=== PATIENT | male | born 1995 | race Caucasian/White ===

== ENCOUNTER 2020-09-14 06:28 | Outpatient (REF) | payer OTHER, SELFPAY ==
--- NOTE | 2020-09-14 06:51 | ECG_ITS ---
Test Reason : TACHYCARDIA Blood Pressure : / mmHG Vent. Rate : 082 BPM Atrial Rate : 082 BPM P-R Int : 152 ms QRS Dur : 088 ms QT Int : 374 ms P-R-T Axes : 065 052 030 degrees QTc Int : 436 ms Normal sinus rhythm with sinus arrhythmia Normal ECG No previous ECGs available Referred By: Derik Blanchard Electronically Signed By:JODY KWON MD
[2020-09-14 07:11] LABS: MANUAL DIFF FLAG NO
[2020-09-14 07:16] LABS: Basophils Percent Auto 0.3 % (0-2); Eosinophils Absolute Auto 0.5 X10*3/uL (0.0-0.4); Eosinophils Percent Auto 4.6 % (0-4); Hematocrit 44.2 % (42-52); Hemoglobin 15.1 g/dl (14.0-18.0); Imm Gran Abs Auto 0.05 X10*3/uL (0.00-0.03); Imm Gran Pct Auto 0.4 % (0.0-0.4); Lymphocytes Absolute Auto 3.4 X10*3/uL (1.2-4.9); Lymphocytes Percent Auto 29.9 % (20-40); Mean Corpuscular HGB Conc 34.2 g/dl (31.0-36.0); Mean Corpuscular Hemoglobin 28.6 pg (27.0-33.0); Mean Corpuscular Volume 83.7 fL (80-98); Mean Platelet Volume 8.4 fL (9.4-12.4); Monocytes Absolute Auto 0.9 X10*3/uL (0.1-1.2); Monocytes Percent Auto 7.9 % (2-11); Neutrophils Absolute Auto 6.5 X10*3/uL (2.0-8.3); Neutrophils Percent Auto 56.9 % (45-73); Platelet Count 388 X10*3/uL (160-400); Red Blood Count 5.28 X10*6/uL (4.60-5.80); Red Cell Distribution Width 11.7 % (11.0-16.0); White Blood Count 11.4 X10*3/uL (4.8-10.8)
[2020-09-14 07:30] LABS: Glucose Urine UA NEG (NEG); Leukocyte Esterase Urine NEG (NEG); Nitrite Urine NEG (NEG); PH 5.5 (5.0-8.0); Specific Gravity - Urine <= 1.005 (1.005-1.025); Urine Blood NEG (NEG); Urine Ketones NEG (NEG); Urine Protein NEG (NEG-TRACE)
[2020-09-14 07:35] LABS: Appearance Urine CLEAR; Color Urine YELLOW
[2020-09-14 07:40] LABS: Alanine Aminotransferase 16 U/L (0-40); Albumin Level 4.6 g/dL (3.5-5.0); Alkaline Phosphatase 104 U/L (39-117); Anion Gap 15 (12-20); Aspartate Amino Transferase 17 U/L (5-37); Bilirubin Total 0.4 mg/dL (0.0-1.0); Blood Urea Nitrogen 13 mg/dL (9-16); Calcium 9.8 mg/dL (8.4-10.2); Carbon Dioxide 25 mmol/L (22-29); Chloride 103 mmol/L (96-108); Cholesterol 203 mg/dL; Estimated Glomerular Filt Rate > 60; Glucose Fasting 99 mg/dL (60-99); HDL Cholesterol 42 mg/dL; LDL Cholesterol Calculated 107 mg/dl; Sodium 138 mmol/L (135-145); Total Protein 7.9 g/dL (6.5-8.0); Triglycerides 270 mg/dL
[2020-09-14 08:02] LABS: TSH reflex Free T4 1.96 uIU/mL (0.32-4.0)
[2020-09-14 08:27] LABS: Hepatitis B Surface Antigen Negative (Negative); ~HepC Num1 4.79 S/CO (0.00-0.79); ~Hepatitis C Antibody Reactive (Nonreactive)
[2020-09-14 09:07] LABS: HBS Num1 128.31 mIU/mL (0-7.99); HBc Num1 0.05 S/CO (0.00-0.79); HIV AB/AG Nonreactive (Nonreactive); HIV Num 1 0.09 S/CO (0.00-0.99); Hepatitis B Core Antibody Nonreactive (Nonreactive); ~Hepatitis B Surface Antibody REACTIVE (Nonreactive)
[2020-09-14 09:10] LABS: CT PCR NOT DETECTED (Not Detect.); NG PCR NOT DETECTED (Not Detect.)
[2020-09-15 08:41] LABS: Syphilis Screen Nonreactive (Nonreactive)
[2020-09-20 20:46] LABS: HSV 1 IgM IFA Negative (Negative); HSV 2 IgM IFA Negative (Negative)
== END 2020-09-14 06:29 | disposition home or self-care (01) ==
LOC: HO.LAB 06:28
PROVIDERS: PCP Internal Medicine; Visit Provider Internal Medicine
DX: R00.0 Tachycardia, unspecified (principal); R03.0 Elevated blood-pressure reading, without diagnosis of hypertension; Z20.2 Contact with and (suspected) exposure to infections with a predominantly sexual mode of transmission
CPT/HCPCS: 80053; 80061; 81003; 84443; 85025; 86695; 86696; 86704; 86706; 86780; 86803; 87340; 87389; 87491; 87591; 93005

== ENCOUNTER → 2021-07-21 08:14 | Outpatient (BNVA) | payer OTHER, SELFPAY | PROVIDERS: PCP Internal Medicine; Visit Provider Urology ==

== ENCOUNTER 2021-12-07 15:53 | Emergency (ER) | payer OTHER, SELFPAY ==
--- NOTE | ~2021-12-07 | XR_ITS ---
EXAMINATION: XR SHOULDER, RIGHT CLINICAL INFORMATION: Shoulder pain COMPARISON: None TECHNIQUE: Four views of the right shoulder. FINDINGS: The bones and soft tissues are normal. Some bone islands are present in the humeral head. No fracture. Glenohumeral and acromioclavicular alignment is anatomic with normal joint space. No abnormal soft tissue calcifications. XR/XR shoulder RT min 2V IMPRESSION: Normal right shoulder.
[2021-12-07 16:27] VITALS: BP 124/87; PULSE 95; RESP 18; TEMP 36.4; O2SAT 97; BMI 28.8
--- NOTE | 2021-12-07 20:35 | ED.EXTPRO ---
HPI - Extremity Problem General Chief complaint: Extremity Injury, Upper Stated complaint: dislocated right shoulder? Time Seen by Provider: 12/07/21 16:18 Source: patient Mode of arrival: ambulatory Limitations: no limitations History of Present Illness HPI Narrative: Patient was doing dips on the countertop today since then been having pain in the right shoulder especially when lifting his hand. No deformity Related Data Home Medications Medication Instructions Recorded Confirmed dextroamphetamine-amphetamine ER 1 cap PO QAM 07/12/21 07/12/21 20 mg 24hr capsule,extend release (Adderall XR) Previous Rx's Medication Instructions Recorded famotidine 20 mg tablet 20 mg PO BEDTIME PRN heartburn 30 07/12/21 days #30 tabs tadalafil 5 mg tablet 5 mg PO DAILY sexual activity 90 07/21/21 days #90 tabs nirmatrelvir 300 mg (150 mg x See Rx Instructions PO .COMPLEX 10/19/21 2)-ritonavir 100 mg tablet (EUA) #30 tabs (Paxlovid) Allergies Allergy/AdvReac Type Severity Reaction Status Date / Time amoxicillin Allergy Unknown unknown Verified 07/21/21 08:16 Review of Systems Review of Systems: Yes all other systems are reviewed and are negative PMFSH Past Medical History Medical History Attention deficit hyperactivity disorder (ADHD) Elevated blood pressure reading Erectile dysfunction GERD (gastroesophageal reflux disease) Overweight (BMI 25.0-29.9) Tachycardia Surgical History No significant past surgical history Family History Family History Father Hypertension Other Family history non-contributory Mental health problem Substance abuse Social History Social History Housing: Apartment Alcohol intake: former Patient Tobacco Use Status: Never used Tobacco Second Hand Smoke Exposure: No Substance Use Type: Marijuana Advance Directives: No Advance Directives Information Provided: No service: No Current occupational status: employed Physical Exam Vital Signs: Vital Signs: Last Vital Signs Temp 97.6 F 12/07/21 16:27 Pulse 95 12/07/21 16:27 Resp 18 12/07/21 16:27 BP 124/87 12/07/21 16:27 Pulse Ox 97 12/07/21 16:27 O2 Del Method 12/07/21 16:27 BMI result Body Mass Index 28.8 Const: General: comfortable and no acute distress Extrem: Shoulder/upper arm images: 1. Diffuse tenderness no deformity noticed neurovascular intact increased pain on external rotation and abduction above 90 degrees no motor weakness MDM - Extremity (Nontraumatic) MDM Narrative Medical decision making narrative: X-ray negative for dislocation clinically patient had rotator cuff tendinitis advise patient to follow with PCP Discharge Plan Discharge Clinical Impression: Tendinitis of right rotator cuff Patient Disposition: Home, Self-Care Instructions: Rotator Cuff Tendinitis (ED) Additional Instructions: Ibuprofen for pain Rest your right shoulder Follow with PCP if any concerns Prescriptions: No Action Paxlovid (EUA) 150 mg x 2- 100 mg tablet See Rx Instructions PO .COMPLEX Qty: 30 0RF Rx Instructions: take TWO 150 mg tablets of nirmatrelvir with ONE 100 mg tablet of ritonavir twice daily for 5 days PO dextroamphetamine-amphetamine [Adderall XR] 20 mg capsule,extended release 24hr 1 cap PO QAM Label Comments: [facility] famotidine 20 mg tablet 20 mg PO BEDTIME PRN (Reason: heartburn) 30 Days Qty: 30 3RF tadalafil 5 mg tablet 5 mg PO DAILY 90 Days Qty: 90 3RF Rx Instructions: administer approximately 30min before sexual activity; do not use more than 1 dose per 24hrs Interventions: ED Discharge Assessment Last Done: 12/07/21 21:10 Discharge Date/Time: 12/07/21 21:13
== END 2021-12-07 21:13 | disposition home or self-care (01) ==
PROVIDERS: Emergency Provider Internal Medicine; PCP Internal Medicine
DX: M75.101 Unspecified rotator cuff tear or rupture of right shoulder, not specified as traumatic (principal); Z79.899 Other long term (current) drug therapy
CPT/HCPCS: 73030; 99282; 99283

== ENCOUNTER → 2022-07-20 15:00 | Outpatient (BNVA) | payer OTHER, SELFPAY | PROVIDERS: PCP Internal Medicine; Visit Provider Urology | DX: Z13.89 Encounter for screening for other disorder (principal) ==

== ENCOUNTER 2022-12-16 07:59 | Outpatient (REF) | payer OTHER, SELFPAY ==
[2022-12-16 08:30] LABS: MANUAL DIFF FLAG NO
[2022-12-16 08:52] LABS: Basophils Percent Auto 0.4 % (0-2); Eosinophils Absolute Auto 0.3 X10*3/uL (0.0-0.4); Eosinophils Percent Auto 3.5 % (0-4); Hematocrit 43.1 % (42.0-52.0); Hemoglobin 14.8 g/dl (14.0-18.0); Imm Gran Abs Auto 0.03 X10*3/uL (0.00-0.03); Imm Gran Pct Auto 0.3 % (0.0-0.4); Lymphocytes Absolute Auto 3.2 X10*3/uL (1.2-4.9); Lymphocytes Percent Auto 34.1 % (20-40); Mean Corpuscular HGB Conc 34.3 g/dl (31.0-36.0); Mean Corpuscular Hemoglobin 28.4 pg (27.0-33.0); Mean Corpuscular Volume 82.7 fL (80.0-98.0); Mean Platelet Volume 8.3 fL (9.4-12.4); Monocytes Absolute Auto 0.8 X10*3/uL (0.1-1.2); Monocytes Percent Auto 8.9 % (2-11); Neutrophils Absolute Auto 4.9 x10*3/uL (2.0-8.3); Neutrophils Percent Auto 52.8 % (45-73); Platelet Count 344 X10*3/uL (160-400); Red Blood Count 5.21 X10*6/uL (4.60-5.80); White Blood Count 9.3 X10*3/uL (4.8-10.8)
[2022-12-16 09:24] LABS: Alanine Aminotransferase 34 U/L (0-40); Albumin Level 4.1 g/dL (3.5-5.0); Alkaline Phosphatase 88 U/L (39-117); Anion Gap 13 (12-20); Aspartate Amino Transferase 29 U/L (5-37); Bilirubin Total 0.3 mg/dL (0.0-1.0); Blood Urea Nitrogen 11 mg/dL (9-16); Calcium 9.8 mg/dL (8.4-10.2); Carbon Dioxide 24 mmol/L (22-29); Chloride 106 mmol/L (96-108); Cholesterol 194 mg/dL; Estimated Glomerular Filt Rate > 60; Glucose Fasting 97 mg/dL (60-99); HDL Cholesterol 37 mg/dL; LDL Cholesterol Calculated 129 mg/dl; Potassium 4.1 mmol/L (3.3-5.1); Sodium 139 mmol/L (135-145); Total Protein 7.5 g/dL (6.5-8.0); Triglycerides 143 mg/dL
[2022-12-16 09:39] LABS: TSH reflex Free T4 3.04 uIU/mL (0.32-4.0); Vitamin D 25-OH Total 19.1 ng/mL (>30)
[2022-12-16 10:36] LABS: Appearance Urine Clear; Color Urine Yellow; Glucose Urine UA Negative (Negative); Leukocyte Esterase Urine Negative (Negative); Nitrite Urine Negative (Negative); Specific Gravity - Urine <= 1.005 (1.005-1.025); Urine Blood Negative (Negative); Urine Ketones Negative (Negative); Urine Protein Negative (Neg-Trace)
[2022-12-21 12:24] LABS: Testosterone, Free 63.1 pg/mL (35.0-155.0); Testosterone, Total 265 ng/dL (250-1100)
== END 2022-12-16 08:00 | disposition home or self-care (01) ==
LOC: HO.LAB 07:59
PROVIDERS: PCP Internal Medicine; Visit Provider Internal Medicine
DX: Z00.00 Encounter for general adult medical examination without abnormal findings (principal); E55.9 Vitamin D deficiency, unspecified; N52.9 Male erectile dysfunction, unspecified; R79.89 Other specified abnormal findings of blood chemistry; E66.9 Obesity, unspecified
CPT/HCPCS: 36415; 80053; 80061; 81003; 82306; 84402; 84403; 84443; 85025

== ENCOUNTER 2022-12-18 14:51 | Outpatient (AMB) | payer OTHER, SELFPAY ==
[2022-12-18 15:08] VITALS: BP 128/80; PULSE 114; O2SAT 96; BMI 32.0
--- NOTE | 2022-12-18 15:08 | MHC.PC.OV ---
Vital Signs 12/18/22 15:08 Height 5 ft 8 in Weight 210 lb 6 oz BMI 32.0 BP 128/80 Blood Pressure Location Lt brachial Position Sitting Pulse 114 H Pulse Source Pulse Oximeter Pulse Oximetry (%) 96 Oxygen Delivery Method Room Air Intake Visit Reasons: 6 month Integration Aide Required: No Accompanied by: Self / Same As Patient Allergies amoxicillin Allergy (Unknown, Verified 12/18/22 15:44) unknown Medication List - Last Reconciled 12/18/22 by Derik Blanchard MD dextroamphetamine-amphetamine 20 mg ER (Adderall XR) 1 cap PO QAM famotidine 20 mg PO BEDTIME PRN 30 days tadalafil 5 mg PO DAILY 90 days Tobacco use date assessed: 12/18/22 Dental Screening Dental Screen Date: 12/18/22 Did you have a dental visit in the last 12 months?: Yes Did you have a dental problem in the last 6 months where you did not have access to dental care?: No Was dental information given to patient?: Patient has dentist HPI 6 month HPI Details Patient comes in today for his follow up visit States that he has been experiencing some recurrent joint pains lately, including over his hands/fingers, right hip, right knee and at times over his ankles Has had some scaling and itchy lesion at his hairline along the right temporal area lately and he is now concerned that he may have psoriatic arthritis Has never been diagnosed with psoriasis in the past but states that his mother has lupus (and diverticulitis) States that he has also been experiencing persistent fatigue for a while now and that is why he called to have lab order for his testosterone level included in his labs recently He denies any headaches or dizziness Denies any chest pains, no increased SOB although he sometimes feel like he cannot get a full breath in - notes that he would sometimes feel like he is getting ready to black out when he is engaged in intense work outs Has tried using some rescue inhaler recently and found that it helps somewhat No nausea/vomiting, no abdominal pain No change in bowel habits noted Had his follow up labs done a couple of days ago - to discuss his results [facility] Medical History (Updated 02/10/23 @ 23:17 by Derik Blanchard MD) Vitamin D deficiency Mixed hyperlipidemia Obesity (BMI 30-39.9) Anxiety GERD (gastroesophageal reflux disease) Overweight (BMI 25.0-29.9) Erectile dysfunction Attention deficit hyperactivity disorder (ADHD) Tachycardia Elevated blood pressure reading Surgical History No significant past surgical history Family History Father Hypertension Other Family history non-contributory Mental health problem Substance abuse Social History Housing: Apartment Alcohol intake: former Patient Tobacco Use Status: Never used Tobacco e-Cigarette/Vaping Use: Never Used Second Hand Smoke Exposure: No Substance Use Type: Marijuana service: No Current occupational status: employed Cognitive needs: No Hearing needs: No Vision needs: No Questionnaire PHQ-9 Over the last 2 weeks, how often have you been bothered by any of the following problems? 1. Little interest or pleasure in doing things: several days 2. Feeling down, depressed, or hopeless: several days 3. Trouble falling or staying asleep, or sleeping too much: not at all 4. Feeling tired or having little energy: nearly every day 5. Poor appetite or overeating: more than half the days 6. Feeling bad about yourself - or that you are a failure or have let yourself or your family down: several days 7. Trouble concentrating on things, such as reading the newspaper or watching television: several days 8. Moving or speaking so slowly that other people could have noticed. Or the opposite - being so fidgety or restless that you have been moving around a lot more than usual: not at all 9. Thoughts that you would be better off or of hurting yourself in some way: not at all Total score: 9 Depression Screening Interpretation: Positive Depression Screening Follow-up: Existing condition, In treatment (on Rx for ADHD/anxiety) and Follow-up Visit Requested [id number] - PHQ-9 Billing: Yes Source: Developed by Drs. Sigifredo Escobar, Lena Fung, Drew Owens and colleagues, with an educational clover from [employer]. Thrive Questionnaire Date Thrive assessed: 12/18/22 I am a: Patient What is your living situation today?: I have a steady place to live Within the past 12 months, did the food you bought not last and you didn't have the money to get more?: Never true Within the past 12 months, did you worry whether your food would run out before you got money to buy more?: Never true Do you have trouble paying for medicines?: No Do you have trouble getting transportation to medical appointments?: No Do you have trouble paying your heating and electricity bill?: No Do you have trouble taking care of your child, family member or friend?: No Do you have trouble with day-to-day activities such as bathing, preparing meals, shopping, managing finances, etc.?: No Are you currently unemployed and looking for a job?: No Are you interested in more education?: No Please select the resources that you would like help with: None Currently or been in a relationship where the following occur: no concerns reported AUDIT C Alcohol Use Questionnaire (AUDIT-C) 1. How often do you have a drink containing alcohol?: Never 3. How often do you have six or more drinks on one occasion?: Never Total Score: 0 Score Reviewed/Action Taken: Yes SKY-7 AMB Questionnaire SKY-7 Date SKY - 7 assessed: 12/18/22 Feeling nervous, anxious, or on edge: 0 = Not at all Not being able to stop or control worryin = Not at all Worrying too much about different things: 0 = Not at all Trouble relaxin = Not at all Being so restless that it is hard to sit still: 0 = Not at all Becoming easily annoyed or irritable: 0 = Not at all Feeling afraid as if something awful might happen: 0 = Not at all Total SKY-7 score (0-4 normal; 5-9 mild; 10-14 moderate; 15-21 severe): 0 Source: Developed by Drs. Sigifredo Escobar, Lena Fung, Drew Owens and colleagues, with an educational clover from [employer]. Review of Systems Const Reports fatigue, Denies fever(s) and Denies headache(s) ENT Denies dysphagia, Denies dizziness, Denies otalgia, Denies headache(s), Denies neck pain, Denies odynophagia and Denies sore throat Card Denies chest pain, Denies rapid heart rate, Denies irregular heart rhythm, Denies palpitations and Reports dyspnea on exertion (mild, at times recently) Resp Denies cough, Reports dyspnea on exertion (mild, at times recently) and Denies wheezing GI Denies abdominal pain, Denies constipation, Denies dysphagia, Denies heartburn, Denies diarrhea, Denies nausea, Denies odynophagia and Denies vomiting Denies difficulty urinating, Denies dysuria and Denies urinary frequency Musc Denies back pain, Reports arthralgias (involving multiple joints lately - see HPI) and Denies neck pain Skin/Breast Reports rash (over the right temporal area - see HPI) Neuro Denies dizziness and Denies headache(s) Endo Reports fatigue and Denies palpitations Aller/Immun Denies wheezing Physical exam (Primary Care) Vital Signs: Last Vital Signs Pulse 114 H 12/18/22 15:08 BP 128/80 12/18/22 15:08 Pulse Ox 96 12/18/22 15:08 Oxygen Delivery Method Room Air 12/18/22 15:08 BMI result Body Mass Index 32.0 Tobacco/Smoking Status: Tobacco use Status Tobacco use date assessed 12/18/22 12/18/22 15:17 Patient Tobacco Use Status Never used Tobacco 12/18/22 15:17 e-Cigarette/Vaping Use Never Used 12/18/22 15:17 PHQ-9: PHQ-9 Score PHQ-9: Total score 9 12/18/22 15:48 Depression Screening Interpretation: Positive Depression Screening Follow-up: Existing condition, In treatment (on Rx for ADHD/anxiety) and Follow-up Visit Requested Thrive Assessment: Date of Thrive Assessment Date Thrive assessed 12/18/22 12/18/22 15:17 Currently or been in a relationship where the following occur: no concerns reported Const General: no acute distress and alert HENMT Ears: TM's normal bilaterally and EAC's normal Throat: Yes posterior oropharynx normal and Yes tonsils normal (no TP congestion) Neck Neck: Yes no lymphadenopathy and Yes supple Thyroid: Thyroid normal Resp Auscultation: clear to auscultation bilaterally, no rales and no wheezes Cardio Rate: regular rate Rhythm: regular rhythm Heart sounds: no murmurs GI Palpation (GI): Soft to palpation and nontender Auscultation: normal bowel sounds Back/Spine/Pelvis Thoracic/Lumbar Spine: thoracic and lumbar spine normal to inspection Skin Other: (+) small patch of scaling rash over the right temporal area at the hairline Extrem General: Yes no clubbing, cyanosis or edema Results Reviewed Results Reviewed: Laboratory Tests 12/16/22 12/16/22 12/16/22 08:29 08:29 09:37 WBC 9.3 Hgb 14.8 Hct 43.1 Plt Count 344 Sodium 139 Potassium 4.1 Creatinine 0.88 Estimated GFR > 60 Fasting Glucose 97 AST 29 ALT 34 Triglycerides 143 Cholesterol 194 LDL Cholesterol, Calc 129 HDL Cholesterol 37 25-OH Vitamin D Total 19.1 TSH 3.04 Ur Specific Temple <= 1.005 Urine Protein Negative Urine Glucose (UA) Negative Urine Blood Negative Assessment and Plan Assessment & Plan (1) Mixed hyperlipidemia: Code(s): E78.2 - Mixed hyperlipidemia Plan: Results of his labs done a couple of days ago reviewed and discussed with patient - his serum triglycerides have improved significantly from previous although his LDL cholesterol has increased from before Reinforced low cholesterol diet Will recheck his labs and fasting lipids in 6 months for follow up (2) Attention deficit hyperactivity disorder (ADHD): Code(s): F90.9 - Attention-deficit hyperactivity disorder, unspecified type Qualifiers: Attention deficit-hyperactivity disorder type: combined inattentive-hyperactive Qualified Code(s): F90.2 - Attention-deficit hyperactivity disorder, combined type Plan: Continue Adderall XR 20 mg QD Follow up with psychiatry at [facility] as scheduled (3) Exertional dyspnea: Code(s): R06.09 - Other forms of dyspnea Plan: Will send patient for chest x-rays BARB for further evaluation Advised that he can continue on Albuterol inhaler PRN for now Will also send him for PFTs for further evaluation of his recent recurrent HERR (4) Arthralgia: Code(s): M25.50 - Pain in unspecified joint Qualifiers: Joint pain location: unspecified Qualified Code(s): M25.50 - Pain in unspecified joint Plan: Will send patient for some labs BARB for further work ups of his recent arthralgias If his arthralgia work ups are positive, will consider referring him to rheumatology for further evaluation and management (5) GERD (gastroesophageal reflux disease): Code(s): K21.9 - Gastro-esophageal reflux disease without esophagitis Qualifiers: Esophagitis presence: without esophagitis Qualified Code(s): K21.9 - Gastro-esophageal reflux disease without esophagitis Plan: Reinforced dietary restrictions Continue Famotidine 20 mg Q HS PRN (6) Vitamin D deficiency: Code(s): E55.9 - Vitamin D deficiency, unspecified Plan: He is advised that his vitamin-D level is low on his recent labs - will start him on vitamin D3 2000 units QD (7) Erectile dysfunction: Code(s): N52.9 - Male erectile dysfunction, unspecified Qualifiers: Erectile dysfunction type: unspecified Qualified Code(s): N52.9 - Male erectile dysfunction, unspecified Plan: Continue Tadalafil 5 mg QD PRN (8) Anxiety: Code(s): F41.9 - Anxiety disorder, unspecified Plan: Patient is still going to counseling and have advised him to bring this to his counselor's/therapist's attention as well Have recommended that he can try some Rx like Sertraline or Citalopram but he would like to hold off on this for now Patient is advised that he can call for prescription at any time if he decides that he wants to try taking some medications to help with his anxiety (9) Obesity (BMI 30-39.9): Code(s): E66.9 - Obesity, unspecified Plan: Reinforced diet/exercise as tolerated/ lose weight Plan Follow up in 3 months Orders: Orders Erythrocyte Sedimentation Rate 12/18/22 M79.7 - Fibromyalgia, M25.50 - Pain in unspecified joint C Reactive Protein 12/18/22 M25.50 - Pain in unspecified joint JADEN Reflex Titer and Pattern 12/18/22 M25.50 - Pain in unspecified joint Rheumatoid Factor 12/18/22 M25.50 - Pain in unspecified joint PFT pulmonary function test 12/18/22 R06.09 - Other forms of dyspnea XR chest 2V 12/18/22 R06.09 - Other forms of dyspnea Medications: New cholecalciferol (vitamin D3) 50 mcg PO DAILY 90 caps 3RF 90 days E55.9 - Vitamin D deficiency, unspecified Coding Level of Care Code Est Pt Level 4 (55171) Diagnoses Mixed hyperlipidemia E78.2 Attention deficit hyperactivity disorder (ADHD), combined type F90.2 Attention deficit-hyperactivity disorder type: combined inattentive-hyperactive Exertional dyspnea R06.09 Arthralgia, unspecified joint M25.50 Joint pain location: unspecified Gastroesophageal reflux disease without esophagitis K21.9 Esophagitis presence: without esophagitis Vitamin D deficiency E55.9 Erectile dysfunction, unspecified erectile dysfunction type N52.9 Erectile dysfunction type: unspecified Anxiety F41.9 Obesity (BMI 30-39.9) E66.9
== END 2022-12-18 16:18 | disposition home or self-care (01) ==
PROVIDERS: PCP Internal Medicine; Visit Provider Internal Medicine
DX: E78.2 Mixed hyperlipidemia (principal); R06.09 Other forms of dyspnea; K21.9 Gastro-esophageal reflux disease without esophagitis; E55.9 Vitamin D deficiency, unspecified
CPT/HCPCS: 99214

== ENCOUNTER 2023-01-04 08:21 | Outpatient (REF) | payer OTHER, SELFPAY ==
--- NOTE | ~2023-01-04 | XR_ITS ---
EXAMINATION: XR CHEST CLINICAL INFORMATION: Reason for Exam R06.09 - Other forms of dyspnea COMPARISON: None TECHNIQUE: 2 views of the chest FINDINGS: Lines and tubes: None. A 1.2 cm nodular opacity overlying the right lung apex which potentially reflect a pulmonary nodule versus overlapping osseous structures. No pleural effusion. No pneumothorax. Normal cardiomediastinal silhouette. XR/XR chest 2V IMPRESSION: 1. A 1.2 cm nodular opacity overlying the right lung apex which potentially reflect a pulmonary nodule versus overlapping osseous structures. Recommend further characterization with CT chest. The report will be called to the ordering clinician by a [facility] Physician Organic Chemist.
--- NOTE | 2023-01-04 09:16 | PFT_ITS ---
Forced vital capacity is 104%, FEV1 102%, FEV1 over FVC ratio of 80. FEF 25-75 93% and MVV 69%. Post bronchodilator therapy, there is no significant change. Total lung capacity 91%. Residual volume is 41%. ERV, 63%. Diffusion capacity 112. CONCLUSION: Normal pulmonary function test except for slight decrease in MVV and marked decrease in residual volume. I think this abnormality is nonspecific and probably related to poor effort. MD TIN Yousif/MODL / [id number]
[2023-01-04 10:47] LABS: C Reactive Protein 0.24 mg/dL (< or = 0.50)
[2023-01-04 10:48] LABS: Rheumatoid Factor < 13.0 IU/mL (<15.0)
[2023-01-04 10:49] LABS: Erythrocyte Sedimentation Rate 9 MM/HR (0-15)
[2023-01-09 16:05] LABS: Anti Nuclear Antibody Screen NEGATIVE (NEGATIVE)
== END 2023-01-04 08:22 | disposition home or self-care (01) ==
LOC: HO.RESP 08:21
PROVIDERS: PCP Internal Medicine; Visit Provider Internal Medicine
DX: R06.09 Other forms of dyspnea (principal); M25.50 Pain in unspecified joint; M79.7 Fibromyalgia
CPT/HCPCS: 36415; 71046; 85652; 86038; 86140; 86431; 94010; 94727; 94729

== ENCOUNTER → 2023-01-04 09:16 | Outpatient (BNV) | payer OTHER, SELFPAY | PROVIDERS: PCP Internal Medicine; Visit Provider Internal Medicine | DX: R06.09 Other forms of dyspnea (principal) | CPT/HCPCS: 94060; 94727; 94729 ==

== ENCOUNTER 2023-03-12 16:00 | Outpatient (REF) | payer OTHER, SELFPAY ==
--- NOTE | ~2023-03-12 | CT_ITS ---
EXAMINATION: CT CHEST WITHOUT CONTRAST CLINICAL INFORMATION: Solitary pulmonary nodule COMPARISON: Chest radiograph from 09/05/2019 TECHNIQUE: Multidetector volumetric CT imaging of the chest was done. Axial MIP volume rendering provided. Sagittal and coronal reformatted images were obtained. This CT examination was performed using dose optimization techniques as appropriate, variously including the following: *Automated exposure control *Adjustment of mA and/or kV according to patient size (this includes techniques or standardized protocols for targeted exams where dose is matched to indication/reason for exam; i.e. extremities or head) *Use of iterative reconstruction technique DLP: 290 mGy-cm FINDINGS: CHIEF ACCOUNTANT: Unremarkable LUNGS: The lungs are clear with no evidence of inflammation or nodules. MEDIASTINUM: The gland is normal. There is no mediastinal or hilar lymphadenopathy seen. Thoracic aorta is normal. There is no pericardial effusion. CORONARY ARTERY CALCIFICATION: None visualized on this study. PLEURA: There is no pleural effusion. No pleural mass or thickening. AXILLA: No lymphadenopathy. UPPER ABDOMEN: Unremarkable. OSSEOUS STRUCTURES: Unremarkable. CT/CT chest wo IV con IMPRESSION: Unremarkable examination. Fleischner guidelines were followed.
== END 2023-03-12 16:01 | disposition home or self-care (01) ==
LOC: HO.CT 16:00
PROVIDERS: PCP Internal Medicine; Visit Provider Internal Medicine
DX: R91.1 Solitary pulmonary nodule (principal)
CPT/HCPCS: 71250

== ENCOUNTER 2023-07-16 17:04 | Outpatient (AMB) | payer OTHER, SELFPAY ==
[2023-07-16 17:07] VITALS: BP 132/94; PULSE 106; O2SAT 98; BMI 31.5
--- NOTE | 2023-07-16 17:07 | A.OFFPC_ITS ---
Vital Signs 07/16/23 17:07 Height 5 ft 8 in Weight 207 lb 4 oz BMI 31.5 BP 132/94 H Blood Pressure Location Lt brachial Position Sitting Pulse 106 H Pulse Source Pulse Oximeter Pulse Oximetry (%) 98 Oxygen Delivery Method Room Air Intake Visit Reasons: GERD, recurrent cough, palpitations Parts Runner Required: No Accompanied by: Self / Same As Patient Allergies amoxicillin Allergy (Unknown, Verified 07/16/23 17:29) unknown Medication List - Last Reconciled 07/16/23 by Derik Blanchard MD cholecalciferol (vitamin D3) 50 mcg PO DAILY 90 days dextroamphetamine-amphetamine 20 mg ER (Adderall XR) 1 cap PO QAM famotidine 20 mg PO BEDTIME PRN 30 days tadalafil 5 mg PO DAILY 90 days Tobacco use date assessed: 07/16/23 HPI GERD, recurrent cough, palpitations HPI Details Patient comes in today for his follow up visit States that he continues to experience recurrent sensation/bouts of rapid heartbeats/tachycardia, which seems to be easily triggered with activity or exertion Patient is aware that his anxiety is also likely contributing to his symptoms and has noticed that his baseline resting heart rate is already often high and is usually over 100 beats per minute He is currently following up with his psychiatrist regularly for his anxiety and ADHD issues He is scheduled to see cardiology tomorrow for further evaluation his symptoms He denies any headaches or dizziness Denies any chest pains; states that he feels short of breath at times when his heart rate is very high but this only occurs occasionally No nausea/vomiting, no abdominal pain No change in bowel habits noted [facility] Medical History Vitamin D deficiency Mixed hyperlipidemia Obesity (BMI 30-39.9) Anxiety GERD (gastroesophageal reflux disease) Overweight (BMI 25.0-29.9) Erectile dysfunction Attention deficit hyperactivity disorder (ADHD) Tachycardia Elevated blood pressure reading Surgical History No significant past surgical history Family History Father Hypertension Other Family history non-contributory Mental health problem Substance abuse Social History Housing: Apartment Alcohol intake: former Patient Tobacco Use Status: Never used Tobacco e-Cigarette/Vaping Use: Never Used Second Hand Smoke Exposure: No Substance Use Type: Marijuana service: No Current occupational status: employed Cognitive needs: No Hearing needs: No Vision needs: No Questionnaire PHQ-9 Over the last 2 weeks, how often have you been bothered by any of the following problems? 1. Little interest or pleasure in doing things: more than half the days 2. Feeling down, depressed, or hopeless: several days 3. Trouble falling or staying asleep, or sleeping too much: nearly every day 4. Feeling tired or having little energy: nearly every day 5. Poor appetite or overeating: more than half the days 6. Feeling bad about yourself - or that you are a failure or have let yourself or your family down: not at all 7. Trouble concentrating on things, such as reading the newspaper or watching television: several days 8. Moving or speaking so slowly that other people could have noticed. Or the opposite - being so fidgety or restless that you have been moving around a lot more than usual: not at all 9. Thoughts that you would be better off or of hurting yourself in some way: not at all Total score: 12 Depression Screening Interpretation: Positive Depression Screening Follow-up: Existing condition and In treatment (is seeing psychiatry regularly) Depression Screening Done: Yes 33213 - PHQ-9 Billing: Yes Source: Developed by Drs. Sigifredo Escobar, Lena Fung, Drew Owens and colleagues, with an educational clover from [employer]. Thrive Questionnaire Date Thrive assessed: 07/16/23 I am a: Patient What is your living situation today?: I have a steady place to live Within the past 12 months, did the food you bought not last and you didn't have the money to get more?: Never true Within the past 12 months, did you worry whether your food would run out before you got money to buy more?: Never true Do you have trouble paying for medicines?: No Do you have trouble getting transportation to medical appointments?: No Do you have trouble paying your heating and electricity bill?: No Do you have trouble taking care of your child, family member or friend?: No Do you have trouble with day-to-day activities such as bathing, preparing meals, shopping, managing finances, etc.?: No Are you currently unemployed and looking for a job?: No Are you interested in more education?: No Please select the resources that you would like help with: None Currently or been in a relationship where the following occur: no concerns reported THRIVE Score: 0 AUDIT C Alcohol Use Questionnaire (AUDIT-C) 1. How often do you have a drink containing alcohol?: Never 3. How often do you have six or more drinks on one occasion?: Never Total Score: 0 Score Reviewed/Action Taken: Yes SKY-7 AMB Questionnaire SKY-7 Date SKY - 7 assessed: 07/16/23 Feeling nervous, anxious, or on edge: 2 = More than half the days Not being able to stop or control worryin = Not at all Worrying too much about different things: 0 = Not at all Trouble relaxin = Nearly every day Being so restless that it is hard to sit still: 1 = Several days Becoming easily annoyed or irritable: 3 = Nearly every day Feeling afraid as if something awful might happen: 0 = Not at all Total SKY-7 score (0-4 normal; 5-9 mild; 10-14 moderate; 15-21 severe): 9 Source: Developed by Drs. Sigifredo Escobar, Lena Fung, Drew Owens and colleagues, with an educational clover from [employer]. SKY-7 Assessment Billing SKY-7 Assessment Tool: SKY-7 Assessment 63628 Review of Systems Const Denies chills, Reports fatigue, Denies fever(s) and Denies headache(s) ENT Denies dysphagia, Denies dizziness, Denies otalgia, Denies headache(s), Denies neck pain, Denies odynophagia and Denies sore throat Card Denies chest pain, Denies rapid heart rate, Denies irregular heart rhythm, Reports palpitations (on and off, especially with increased exertion) and Reports dyspnea on exertion (mild, at times ) Resp Denies cough, Reports dyspnea on exertion (mild, at times ) and Denies wheezing GI Denies abdominal pain, Denies constipation, Denies dysphagia, Denies heartburn, Denies diarrhea, Denies nausea, Denies odynophagia and Denies vomiting Denies difficulty urinating, Denies dysuria and Denies urinary frequency Musc Denies back pain, Reports arthralgias (on and off, involving multiple joints), Denies neck pain and Denies stiffness Skin/Breast Reports rash (scaling rash over scalp, along the hairline & over bearded areas on face) Neuro Denies dizziness and Denies headache(s) Psych Reports anxiety Endo Reports fatigue and Reports palpitations (on and off, especially with increased exertion) Aller/Immun Denies wheezing Physical exam (Primary Care) Vital Signs: Last Vital Signs Pulse 106 H 07/16/23 17:07 BP 132/94 H 07/16/23 17:07 Pulse Ox 98 07/16/23 17:07 Oxygen Delivery Method Room Air 07/16/23 17:07 BMI result Body Mass Index 31.5 Tobacco/Smoking Status: Tobacco use Status Tobacco use date assessed 07/16/23 07/16/23 17:16 Patient Tobacco Use Status Never used Tobacco 07/16/23 17:16 e-Cigarette/Vaping Use Never Used 07/16/23 17:16 PHQ-9: PHQ-9 Score PHQ-9: Total score 12 07/16/23 22:32 Depression Screening Interpretation: Positive Depression Screening Follow-up: Existing condition and In treatment (is seeing psychiatry regularly) Thrive Assessment: Date of Thrive Assessment Date Thrive assessed 07/16/23 07/16/23 17:16 Currently or been in a relationship where the following occur: no concerns reported Const General: no acute distress and alert HENMT Ears: TM's normal bilaterally and EAC's normal Throat: Yes posterior oropharynx normal and Yes tonsils normal (no TP congestion) Neck Neck: Yes no lymphadenopathy and Yes supple Thyroid: Thyroid normal Resp Auscultation: clear to auscultation bilaterally, no rales and no wheezes Cardio Rate: tachycardic Rhythm: regular rhythm Heart sounds: no murmurs GI Palpation (GI): Soft to palpation and nontender Auscultation: normal bowel sounds Back/Spine/Pelvis Thoracic/Lumbar Spine: thoracic and lumbar spine normal to inspection Skin Other: (+) small patches of scaling rash scattered over the scalp, along the hairline and over some of the bearded areas on the face Extrem General: Yes no clubbing, cyanosis or edema Assessment and Plan Assessment & Plan (1) Tachycardia: Code(s): R00.0 - Tachycardia, unspecified Plan: Will send patient for some repeat labs BARB for further evaluation He is scheduled to see cardiology tomorrow for further evaluation Advised that he will likely need further tests that may include Holter monitoring, echocardiogram and possibly tilt table testing but I will leave it up to cardiology to determine which ones would be more appropriate in his case (2) Exertional dyspnea: Code(s): R06.09 - Other forms of dyspnea Plan: Continue Albuterol inhaler Q 6 hours PRN He is reassured that his PFTs and chest x-ray done a few months ago both came back normal Advised again that his on and off dyspnea may be tied-in potentially to his anxiety as well as to his recurrent bouts of tachycardia, which is currently still undergoing further evaluation (3) Mixed hyperlipidemia: Code(s): E78.2 - Mixed hyperlipidemia Plan: Reinforced low cholesterol diet (4) GERD (gastroesophageal reflux disease): Code(s): K21.9 - Gastro-esophageal reflux disease without esophagitis Qualifiers: Esophagitis presence: without esophagitis Qualified Code(s): K21.9 - Gastro-esophageal reflux disease without esophagitis Plan: Reinforced dietary restrictions Continue Famotidine 20 mg Q HS He is advised that if his symptoms persist, then will need to consider starting him on a PPI and/or refer him to GI and possibly undergoing EGD for further evaluation (5) Vitamin D deficiency: Code(s): E55.9 - Vitamin D deficiency, unspecified Plan: Continue Vitamin D3 2000 units QD (6) Erectile dysfunction: Code(s): N52.9 - Male erectile dysfunction, unspecified Qualifiers: Erectile dysfunction type: unspecified Qualified Code(s): N52.9 - Male erectile dysfunction, unspecified Plan: Continue Tadalafil 5 mg QD PRN (7) Attention deficit hyperactivity disorder (ADHD): Code(s): F90.9 - Attention-deficit hyperactivity disorder, unspecified type Qualifiers: Attention deficit-hyperactivity disorder type: combined inattentive- hyperactive Qualified Code(s): F90.2 - Attention-deficit hyperactivity disorder, combined type Plan: Continue Adderall XR 20 mg QD Follow up with psychiatry at [facility] as scheduled (8) Anxiety: Code(s): F41.9 - Anxiety disorder, unspecified Plan: Patient is still going to counseling regularly Have recommended in the past that he can try some Rx like Sertraline or Citalopram but he asked to hold off on Rx Patient is reminded that he can call for prescription at any time if he decides that he wants to try taking some medications to help with his anxiety or he can discuss this with his psychiatrist further if he prefers (9) Obesity (BMI 30-39.9): Code(s): E66.9 - Obesity, unspecified Plan: Reinforced diet/exercise as tolerated/ lose weight Plan To return in 4 months for his annual physical examination Orders: Orders Lipid Panel 07/16/23 E78.00 - Pure hypercholesterolemia, unspecified, R00.0 - Tachycardia, unspecified, R00.2 - Palpitations Complete Blood Count Auto Diff 07/16/23 R00.0 - Tachycardia, unspecified Comprehensive [place]. Panel Fast 07/16/23 R00.0 - Tachycardia, unspecified, R00.2 - Palpitations TSH reflex Free T4 07/16/23 E78.00 - Pure hypercholesterolemia, unspecified, R00.0 - Tachycardia, unspecified, R00.2 - Palpitations UA CC w/rflx Micro + Cult 07/16/23 R00.0 - Tachycardia, unspecified, R30.0 - Dysuria Vitamin D 25-OH Total 07/16/23 E55.9 - Vitamin D deficiency, unspecified, R00.0 - Tachycardia, unspecified, R00.2 - Palpitations Magnesium 07/16/23 E83.42 - Hypomagnesemia, R00.0 - Tachycardia, unspecified Erythrocyte Sedimentation Rate 07/16/23 R00.0 - Tachycardia, unspecified, R00.2 - Palpitations C Reactive Protein 07/16/23 R00.0 - Tachycardia, unspecified, R00.2 - Palpitations Coding Level of Care Code Est Pt Level 4 (91006) Diagnoses Tachycardia R00.0 Exertional dyspnea R06.09 Mixed hyperlipidemia E78.2 Gastroesophageal reflux disease without esophagitis K21.9 Esophagitis presence: without esophagitis Vitamin D deficiency E55.9 Erectile dysfunction, unspecified erectile dysfunction type N52.9 Erectile dysfunction type: unspecified Attention deficit hyperactivity disorder (ADHD), combined type F90.2 Attention deficit-hyperactivity disorder type: combined inattentive- hyperactive Anxiety F41.9 Obesity (BMI 30-39.9) E66.9 Additional Codes SKY-7 Assessment Billing - SKY-7 Assessment Tool: SKY-7 Assessment 89401 ([id number])
== END 2023-07-16 17:42 | disposition home or self-care (01) ==
LOC: HO.HMGH 17:05
PROVIDERS: PCP Internal Medicine; Visit Provider Internal Medicine
DX: R00.0 Tachycardia, unspecified (principal); R06.09 Other forms of dyspnea; Z68.31 Body mass index [BMI] 31.0-31.9, adult; E66.9 Obesity, unspecified; E78.2 Mixed hyperlipidemia; K21.9 Gastro-esophageal reflux disease without esophagitis; E55.9 Vitamin D deficiency, unspecified; N52.9 Male erectile dysfunction, unspecified; F90.2 Attention-deficit hyperactivity disorder, combined type; F41.9 Anxiety disorder, unspecified
CPT/HCPCS: 99214

== ENCOUNTER 2023-07-17 14:36 | Outpatient (AMB) | payer OTHER, SELFPAY ==
[2023-07-17 14:48] VITALS: BP 120/70; PULSE 98; BMI 31.2
--- NOTE | 2023-07-17 14:48 | A.OFFVIS_ITS ---
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 He states that he has had high heart rate for many years but recently that more bothersome than in the past. Whenever he is doing anything physical, he can go very fast into the 150s and 160s and even beyond. After he does exercises like weight training, he feels very exhausted and very sleepy as well. He has history of ADHD and currently on Adderall. He has been other medications before as well and he strongly feels he can not function without them. From a cardiac standpoint the main issues the sensations of rapid heart rate. No documented coronary disease or cardiomyopathy or any other major cardiac concerns otherwise. He is fairly active without any limitations although the palpitations do bother him a lot. Hence he is concerned. [facility] Medical History Vitamin D deficiency Mixed hyperlipidemia Obesity (BMI 30-39.9) Anxiety GERD (gastroesophageal reflux disease) Overweight (BMI 25.0-29.9) Erectile dysfunction Attention deficit hyperactivity disorder (ADHD) Tachycardia Elevated blood pressure reading Surgical History No significant past surgical history Family History Father Hypertension Other Family history non-contributory Mental health problem Substance abuse Social History Housing: Apartment Alcohol intake: former Patient Tobacco Use Status: Never used Tobacco e-Cigarette/Vaping Use: Never Used Second Hand Smoke Exposure: No Substance Use Type: Marijuana service: No Current occupational status: employed Cognitive needs: No Hearing needs: No Vision needs: No Review of Systems Const Denies chills, Denies fatigue, Denies fever(s), Denies frequent falls, Denies weakness, Denies weight gain and Denies weight loss ENT Denies dizziness Card Denies chest pain, Denies leg edema, Denies lightheadedness, Denies palpitations, Denies dyspnea, Denies dyspnea on exertion and Denies orthopnea Resp Denies cough, Denies dyspnea and Denies dyspnea on exertion GI Denies bloating and Denies change in bowel habits Musc Denies muscle weakness, Denies numbness and Denies tingling Neuro Denies dizziness, Denies frequent falls, Denies numbness, Denies tingling and Denies weakness Endo Denies fatigue and Denies palpitations Physical Exam Vital Signs: Last Vital Signs Pulse 98 07/17/23 14:48 BP 120/70 07/17/23 14:48 BMI result Body Mass Index 31.2 Const General: comfortable and no acute distress Orientation/consciousness: patient oriented x3 HEENT Other: Unremarkable Head: Yes normal to inspection Neck Neck: Yes normal visual inspection Chest Chest palpation & inspection: normal inspection of the chest Resp Auscultation: clear to auscultation bilaterally Cardio Palpation: normal PMI Heart sounds: S1 normal heart sound present, S2 normal heart sound present, no gallops, no murmurs and no rubs GI Palpation (GI): Soft to palpation Back/Spine/Pelvis Other: unremarkable Skin General skin exam: no rashes or lesions noted Neuro General: patient oriented x3 Extrem General: Yes normal to inspection Psych Mental Status: mental status grossly normal Office Procedures EKG Details: EKG with sinus rhythm at 98/Min; no significant ST-T changes and otherwise unremarkable[place] [id number], Complete Assessment & Plan Assessment & Plan (1) Tachycardia: Code(s): R00.0 - Tachycardia, unspecified (2) Intermittent palpitations: Code(s): R00.2 - Palpitations Plan Available data reviewed. Chest CT scan is unremarkable. No findings in the mediastinum. Normal thoracic aorta. No pericardial effusion. No coronary artery calcifications. No pleural effusion. Pulmonary function testing reported to be unremarkable. Per available vital signs, he does have tachycardia going back in 2020. Even then, heart rate was 110/Min. Suspect he might have some inappropriate sinus tachycardia type component made worse by ADHD meds. We discussed about these at length today. We can start with a baseline echocardiogram and a 7 day Holter monitor for further evaluation. Suspect he will have a lot of sinus tachycardia episodes. And then we need to decide what we can do about ADHD meds. If he states he can not function without dose, then may have to try beta-blockers although starting meds in someone of this age may not be ideal as he may need them for long time. Plan discussed at length with patient and he understands and agrees. Orders: Orders CA echo transthoracic complete Today R00.2 - Palpitations ECG 7 day holter monitor Today R00.2 - Palpitations Coding Level of Care Code New Pt Level 4 (34224) Diagnoses Tachycardia R00.0 Intermittent palpitations R00.2 CPT Codes EKG - CPT: 67292-[id number], Complete ([id number])
== END 2023-07-17 15:23 | disposition home or self-care (01) ==
PROVIDERS: PCP Internal Medicine; Visit Provider Internal Medicine
DX: R00.0 Tachycardia, unspecified (principal); R00.2 Palpitations
CPT/HCPCS: 93010; 99204

== ENCOUNTER → 2023-07-17 14:36 | Outpatient (BNVA) | payer OTHER, SELFPAY | PROVIDERS: PCP Internal Medicine; Visit Provider Internal Medicine | DX: R00.0 Tachycardia, unspecified (principal); R00.2 Palpitations | CPT/HCPCS: 93005 ==

== ENCOUNTER 2023-07-24 15:40 | Outpatient (AMB) | payer OTHER, SELFPAY ==
--- NOTE | 2023-07-24 15:44 | A.OFFVIS_ITS ---
Intake Intake Visit Reasons: 1yr follow up(Confirmed) Intake Note: Patient is Present for Telephone Follow Up Urology Med: Tadalafil Antibiotic Allergy: Amoxicillin Blood Thinner: none Allergies amoxicillin Allergy (Unknown, Verified 07/16/23 17:29) unknown Medication List - Last Reconciled 07/24/23 by Kameron Irvin MD cholecalciferol (vitamin D3) 50 mcg PO DAILY 90 days dextroamphetamine-amphetamine 20 mg ER (Adderall XR) 1 cap PO QAM famotidine 20 mg PO BEDTIME PRN 30 days tadalafil 5 mg PO DAILY 90 days HPI HPI Comments History of Present Illness Details Rubens Segura is a very pleasant male. He is patient of Dr Blanchard. He is seen for the following urologic conditions. - erectile dysfunction Telemedicine evaluation 15 minute consultation [employer] campos Video attempted Yearly follow-up Continue good response to daily tadalafil Feels that tadalafil is able to counteract many of the adverse effects from Adderall There is emerging data that Adderall can interfere with erectile function and testosterone levels Erectile dysfunction Situational anxiety Good response to tadalafil daily 5mg PFSH Medical History Vitamin D deficiency Mixed hyperlipidemia Obesity (BMI 30-39.9) Anxiety GERD (gastroesophageal reflux disease) Overweight (BMI 25.0-29.9) Erectile dysfunction Attention deficit hyperactivity disorder (ADHD) Tachycardia Elevated blood pressure reading Surgical History No significant past surgical history Family History Father Hypertension Other Family history non-contributory Mental health problem Substance abuse Social History Housing: Apartment Alcohol intake: former Patient Tobacco Use Status: Never used Tobacco e-Cigarette/Vaping Use: Never Used Second Hand Smoke Exposure: No Substance Use Type: Marijuana service: No Current occupational status: employed Cognitive needs: No Hearing needs: No Vision needs: No Review of Systems Const All systems reviewed & are unremarkable except as noted in HPI and below Reports no additional complaints Resp Reports no additional complaints GI Reports no additional complaints Reports as per HPI Musc Reports no additional complaints Physical Exam Telemedicine evaluation Appropriate responses Regular breathing rate and rhythm HEENT Head: Yes normal to inspection Ears: hearing grossly normal bilaterally Eyes General: appearance normal, both eyes and all related structures Neck Neck: Yes normal visual inspection Chest Chest palpation & inspection: normal inspection of the chest Resp Effort & Inspection: normal respiratory effort and able to speak in complete sentences Assessment & Plan Assessment & Plan (1) Erectile dysfunction: Code(s): N52.9 - Male erectile dysfunction, unspecified Qualifiers: Erectile dysfunction type: unspecified Qualified Code(s): N52.9 - Male erectile dysfunction, unspecified (2) Attention deficit hyperactivity disorder (ADHD): Code(s): F90.9 - Attention-deficit hyperactivity disorder, unspecified type Qualifiers: Attention deficit-hyperactivity disorder type: combined inattentive- hyperactive Qualified Code(s): F90.2 - Attention-deficit hyperactivity disorder, combined type Plan Twelve month follow-up Medications: Refilled tadalafil administer approximately 30min before sexual activity; do not use more than 1 dose per 24hrs 5 mg PO DAILY 90 tabs 3RF sexual activity 90 days Patient Instructions: Imaging studies, laboratory and physical exam results were discussed and reviewed in detail. No major barriers to patient understanding were identified. An opportunity to ask questions regarding the treatment plan was provided. All questions were answered. The patient expressed understanding and agreement with the above treatment plan. The patient is aware they should contact our office by phone for worsening of their current condition or the appearance of new urologic symptoms. Compliance is encouraged with any medications and followup testing that is ordered. It is a privilege to participate in the urologic care of your patient. If you have any questions or concerns regarding treatment for the above conditions, or other urologic issues, please do not hesitate to contact me. The office telephone contact is [phone]. This note is constructed using voice recognition software. While every effort has been made to ensure accuracy fire lookout errors may have been included. Yours sincerely, Dr Kameron Irvin MD, [facility] - Urology Providers of Expert, Compassionate Care for the Genitourinary System Telehealth Telehealth Location of provider rendering services: practice address Location of patient: address on file Patient Identification confirmed using: Name, : Yes Telehealth method: video Patient verbally consented to treatment: Yes Patient verbally consented to billing insurance company: Yes Patient informed of any privacy concerns related to visit: Yes Coding Level of Care Code Tele Est Pt Level 4 (33317) Diagnoses Erectile dysfunction, unspecified erectile dysfunction type N52.9 Erectile dysfunction type: unspecified Attention deficit hyperactivity disorder (ADHD), combined type F90.2 Attention deficit-hyperactivity disorder type: combined inattentive- hyperactive
== END 2023-07-24 16:55 | disposition home or self-care (01) ==
LOC: HO.HUSH 15:41
PROVIDERS: PCP Internal Medicine; Visit Provider Urology
DX: N52.9 Male erectile dysfunction, unspecified (principal); F90.2 Attention-deficit hyperactivity disorder, combined type
CPT/HCPCS: 99213

== ENCOUNTER → 2023-07-24 15:40 | Outpatient (BNVA) | payer OTHER, SELFPAY | PROVIDERS: PCP Internal Medicine; Visit Provider Urology ==

== ENCOUNTER → 2023-08-13 13:33 | Outpatient (REF) | payer OTHER, SELFPAY ==
--- NOTE | 2023-08-13 13:36 | HM_ITS ---
Conclusion: 1. Patient was monitored for total period of 7 days 2. Baseline was normal sinus rhythm with average heart of 96 beats per minute 3. Frequent sinus tachycardia noted with 49% of time heart rate greater than 100 beats per minute 4. No significant pauses or arrhythmias noted 5. Patient marked 2 events with correlating symptoms in the diary correlating with either sinus rhythm or sinus tachycardia MTDD
== END ==
LOC: HO.CARD 13:33
PROVIDERS: Visit Provider Internal Medicine
DX: R00.2 Palpitations (principal)
CPT/HCPCS: 93242

== ENCOUNTER → 2023-08-13 13:36 | Outpatient (BNV) | payer OTHER, SELFPAY | PROVIDERS: Visit Provider Internal Medicine Cardiovascular Disease | DX: R00.0 Tachycardia, unspecified (principal) | CPT/HCPCS: 93244 ==

== ENCOUNTER → 2023-08-28 14:39 | Outpatient (REF) | payer OTHER, SELFPAY ==
--- NOTE | 2023-08-28 14:41 | CA_ITS ---
Transthoracic Echocardiogram Patient (Last, First, Middle): Rubens Sofia, Gender: Male Date of : 1995 Age: 28 Procedure Date: 08/28/2023 Procedure Type: Transthoracic Echocardiogram Location: OP Height: 172.72 cm Weight: 95.26 kg BSA: 2.09 m2 Heart Rate: bpm BP: 118 / 86 mmHg Control Engineer: TO Referring MD: Edilson Jaffe MD Racing Car Driver: Osman Walker MD Symptoms: R00.2 - Palpitations Study Quality: Fair/Contrast ECG Rhythm: Sinus Conclusions: - essentially normal study Findings Procedure Information Contrast agent, definity, is being given per protocol without apparent complications. Left Ventricle Normal left ventricular size, thickness, and systolic function. The visually estimated ejection fraction is between 60-65%. Spectral Doppler is indicative of a normal filling pattern. Right Ventricle Normal right ventricular cavity size and systolic function. Atria Both atria are normal in size. There is no evidence of interatrial shunt. Aortic Valve Normal aortic valve structure and function. There is no aortic valve stenosis. There is no aortic valve regurgitation. Mitral Valve Normal mitral valve structure and function. There is no mitral valve regurgitation. There is no mitral valve stenosis. Pulmonic Valve The pulmonic valve is likely normal. Tricuspid Valve Normal tricuspid valve structure. Tricuspid regurgitation envelope is inadequate for calculation of right ventricular systolic pressure. Normal right atrial pressure. Great Vessels All visible segments of the aorta are normal in size. The pulmonary artery was not well visualized. Venous The inferior vena cava is normal in size and collapses greater than 50% with inspiration. Pericardium/Pleural There is no evidence of pericardial effusion. Prior Study Comparison No prior study available for comparison. Measurements 2D Linear Measurements IVSd: 1.02 0.6-0.9/0.6-1.0 cm LVIDd: 4.16 3.9-5.3/4.2-5.9 cm LVIDd Index: 1.99 2.4-3.2/2.2-3.1 cm/m2 LVIDs: 2.82 2.0-3.6 cm LVPWd: 1.05 0.7-1.1 cm LA Diam: 2.70 2.7-3.8/3.0-4.0 cm LAIDs Index: 1.29 1.5-2.3 cm/m2 LV Mass: 176.61 67-162/88-224 g LV Mass Index: 84.50 43-95/49-115 g/m2 LVOT Diam: 2.60 3.0+(-)1.3 cm 2D Systolic Function EF 4C: 64.40 >55% EF 2C: 64.70 >55% EF BiP: 64.20 >55% Mitral Valve MV Pk E: 0.68 MV PK A: 0.60 MV Decel Time: 136.00 E/A: 1.10 E'Lateral: 10.90 E'Medial: 6.85 E/E' Med: 9.90 E/E' Lat: 6.20 PHT: 40.00 MVA PHT: 5.50 Decel Panola: 4.96 Aortic Valve AoV Pk Munir: 1.31 AoV Mn Munir: 0.94 AoV VTI: 0.24 AoV Pk Grad: 7.00 Aov Mn Grad: 4.00 JOSE Cont.VTI: 4.96 LVOT LVOT Pk Munir: 1.31 LVOT Mn Munir: 0.77 LVOT VTI: 0.23 LVOT Pk Grad: 7.00 LVOT Mn Grad: 3.00 LVOT Diam: 2.60 LVOT Area: 5.31 Diastolic Function MV Pk E: 0.68 MV Pk A: 0.60 E/A: 1.10 E'Medial: 6.85 E/E' Med: 9.90 E' Laterial: 10.90 E/E' Lat: 6.20 Right Ventricle TAPSE (mm): 18.40 TVS' Munir: 11.30 Tricuspid Valve RA Press: 3.00 Great Vessels Aorta Sinus of Valsalva: 3.67 2.0-3.5 cm Ao Asc: 2.90 2.1-3.4 cm Ao Arch: 2.60 Updated in Other Vendor System with Status of Final Osman Walker MD electronically signed on 08/29/2023 2:09:08 PM with status of Final
== END ==
LOC: HO.CARD 14:39
PROVIDERS: PCP Internal Medicine; Visit Provider Internal Medicine
DX: R00.2 Palpitations (principal)
CPT/HCPCS: 93306; Q9957

== ENCOUNTER → 2023-08-28 14:41 | Outpatient (BNV) | payer OTHER, SELFPAY | PROVIDERS: PCP Internal Medicine; Visit Provider Internal Medicine Cardiovascular Disease | DX: R00.2 Palpitations (principal) | CPT/HCPCS: 93306 ==

== ENCOUNTER 2023-09-13 15:36 | Outpatient (AMB) | payer OTHER, SELFPAY ==
[2023-09-13 15:39] VITALS: BP 108/82; PULSE 111; BMI 31.4
--- NOTE | 2023-09-13 15:39 | MHC.OFFVIS ---
Vital Signs 09/13/23 15:39 Height 5 ft 8 in Weight 206 lb 12.697 oz BMI 31.4 BP 108/82 Blood Pressure Location Lt brachial Position Sitting Pulse 111 H Pulse Source Pulse Oximeter Intake Visit Reasons: 2 mth f/up echo/ holter HS Shoe Associate Required: No Allergies amoxicillin Allergy (Unknown, Verified 09/13/23 15:41) unknown Medication List - Last Reconciled 09/13/23 by Halima Waller NP-C bupropion HCl SR (Wellbutrin SR) 150 mg PO DAILY cholecalciferol (vitamin D3) 50 mcg PO DAILY 90 days dextroamphetamine-amphetamine 20 mg ER (Adderall XR) 1 cap PO QAM famotidine 20 mg PO BEDTIME PRN 30 days tadalafil 5 mg PO DAILY 90 days HPI HPI 2 mth f/up echo/ holter HS: Details: Rubens is a 28-year-old male with past medical history mild obesity, hyperlipidemia, ADHD, who was being evaluated for heart palpitations. On last visit a Holter monitor and echocardiogram were ordered and he now presents for follow-up. Today he reports that he does feel his heart going fast much of the time. He finds his heart rate to be over 100 when he checks it. He has not had any lightheadedness, presyncope, syncope, falls. No chest discomfort at rest or with activity. He has mild shortness of breath with over exertion but feels it may be related to deconditioning. No PND, orthopnea or edema. He takes his meds as directed. He is on Adderall which he says he needs for his ADHD. [facility] Medical History Vitamin D deficiency Mixed hyperlipidemia Obesity (BMI 30-39.9) Anxiety GERD (gastroesophageal reflux disease) Overweight (BMI 25.0-29.9) Erectile dysfunction Attention deficit hyperactivity disorder (ADHD) Tachycardia Elevated blood pressure reading Surgical History No significant past surgical history Family History Father Hypertension Other Family history non-contributory Mental health problem Substance abuse Social History Housing: Apartment Alcohol intake: former Patient Tobacco Use Status: Never used Tobacco e-Cigarette/Vaping Use: Never Used Second Hand Smoke Exposure: No Substance Use Type: Marijuana service: No Current occupational status: employed Cognitive needs: No Hearing needs: No Vision needs: No Review of Systems ENT Denies dizziness Card Denies chest pain, Denies chest pain at rest, Denies chest pain with activity, Reports rapid heart rate, Denies pedal edema, Denies edema, Denies leg edema, Denies lightheadedness, Denies palpitations, Reports dyspnea on exertion and Denies orthopnea Resp Denies cough and Reports dyspnea on exertion GI Denies hematochezia and Denies change in stool character Musc Denies abnormal gait, Denies limited range of motion, Denies muscle cramps, Denies muscle weakness, Denies numbness, Denies radiating pain into limb, Denies stiffness and Denies tingling Neuro Denies abnormal gait, Denies dizziness, Denies numbness and Denies tingling Endo Denies palpitations Physical Exam Vital Signs: Last Vital Signs Pulse 111 H 09/13/23 15:39 BP 108/82 09/13/23 15:39 BMI result Body Mass Index 31.4 Const General: cooperative, healthy appearing, comfortable and no acute distress Orientation/consciousness: patient oriented x3 Neck Neck: Yes normal visual inspection Resp Effort & Inspection: normal respiratory effort Auscultation: clear to auscultation bilaterally, no crackles, no rales, no rhonchi and no wheezes Cardio Jugular venous distension: no JVD Rate: regular rate Rhythm: regular rhythm Heart sounds: S1 normal heart sound present, S2 normal heart sound present, no murmurs and no rubs Neuro General: patient oriented x3 Extrem General: Yes normal to inspection, No no pedal edema and No calf tenderness Psych Appearance: grossly normal Mental Status: mental status grossly normal Speech and movement: Normal speech and movement present Assessment & Plan Assessment & Plan (1) Intermittent palpitations: Code(s): R00.2 - Palpitations Category: Medical Plan: Heart palpitations consisting of rapid heartbeat. No sudden start and stop. No concerning associated symptoms. Echocardiogram done 08/28/2023 showing normal study. Holter monitor done 08/13/2023 showing sinus rhythm with average heart rate 96, 49% of the time heart rate greater than 100, no significant arrhythmia or pauses. Test results reviewed with him in detail. Admits to having 2 coffees each morning and a energy drink in the afternoon. He is taking Adderall extended release 20 mg daily. He also does no routine exercise and admits to being deconditioned. Discussed benefits of caffeine reduction, increasing physical activity. 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 Reviewed good hydration, getting adequate rest. No strong indication for heart rate lowering medications at this time. EF is normal which is very reassuring. Cardiology follow-up in 1 year, sooner if needed. Emergency care if ever needed for concerning symptoms. (2) Sinus tachycardia: Code(s): R00.0 - Tachycardia, unspecified Category: Medical Plan: As above (3) Attention deficit hyperactivity disorder (ADHD): Code(s): F90.9 - Attention-deficit hyperactivity disorder, unspecified type Category: Medical Qualifiers: Attention deficit-hyperactivity disorder type: combined inattentive-hyperactive Qualified Code(s): F90.2 - Attention-deficit hyperactivity disorder, combined type Plan: As above Plan Time spent on chart review, documentation, interview and assessment Coding Level of Care Code Est Pt Level 4 (12364) Diagnoses Intermittent palpitations R00.2 Sinus tachycardia R00.0 Attention deficit hyperactivity disorder (ADHD), combined type F90.2 Attention deficit-hyperactivity disorder type: combined inattentive-hyperactive Time Spent (min) 28
== END 2023-09-13 16:18 | disposition home or self-care (01) ==
PROVIDERS: PCP Internal Medicine; Visit Provider Nurse Practitioner Family
DX: R00.2 Palpitations (principal); R00.0 Tachycardia, unspecified; F90.2 Attention-deficit hyperactivity disorder, combined type
CPT/HCPCS: 99214

== ENCOUNTER → 2023-09-13 15:36 | Outpatient (BNVA) | payer OTHER, SELFPAY | PROVIDERS: PCP Internal Medicine; Visit Provider Nurse Practitioner Family ==

== ENCOUNTER 2023-11-14 16:56 | Outpatient (AMB) | payer OTHER, SELFPAY ==
[2023-11-14 16:57] VITALS: BP 136/82; PULSE 110; O2SAT 98; BMI 31.2
--- NOTE | 2023-11-14 16:57 | A.OFFPC_ITS ---
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 Accompanied by: Self / Same As Patient Allergies amoxicillin Allergy (Unknown, Verified 11/14/23 18:28) unknown Medication List - Last Reconciled 11/14/23 by Derik Blanchard MD cholecalciferol (vitamin D3) 50 mcg PO DAILY 90 days dextroamphetamine-amphetamine 20 mg ER (Adderall XR) 1 cap PO QAM famotidine 20 mg PO BEDTIME PRN fluoxetine 20 mg PO DAILY tadalafil 5 mg PO DAILY 90 days Tobacco use date assessed: 07/16/23 Dental Screening Dental Screen Date: 11/14/23 Did you have a dental visit in the last 12 months?: No Did you have a dental problem in the last 6 months where you did not have access to dental care?: No Was dental information given to patient?: Patient has dentist HPI pe HPI Details Patient comes in today for his annual physical examination States that he feels okay He denies any headaches or dizziness Denies any chest pains, no SOB States that his palpitations and sensations of rapid heart rate have also subsided significantly lately No nausea/vomiting, no abdominal pain No change in bowel habits noted He denies any acute urinary symptoms PFSH Medical History (Updated 11/14/23 @ 18:32 by Derik Blanchard MD) Vitamin D deficiency Mixed hyperlipidemia Obesity (BMI 30-39.9) Anxiety GERD (gastroesophageal reflux disease) Erectile dysfunction Attention deficit hyperactivity disorder (ADHD) Surgical History No significant past surgical history Family History Father Hypertension Other Family history non-contributory Mental health problem Substance abuse Social History Housing: Apartment Alcohol intake: former Patient Tobacco Use Status: Never used Tobacco e-Cigarette/Vaping Use: Never Used Second Hand Smoke Exposure: No Substance Use Type: Marijuana service: No Current occupational status: employed Current occupational exposures/hazards: No Cognitive needs: No Hearing needs: No Vision needs: No Questionnaire Thrive Questionnaire Date Thrive assessed: 07/16/23 SKY-7 AMB Questionnaire SKY-7 Date SKY - 7 assessed: 07/16/23 Source: Developed by Drs. Sigifredo Escobar, Lena Fung, Drew Owens and colleagues, with an educational clover from [employer]. Review of Systems Const Denies chills, Denies fatigue, Denies fever(s), Denies headache(s), Denies malaise and Denies weakness Eyes Denies blurry vision, Denies change in vision, Denies irritation and Denies itchy eyes ENT Denies dysphagia, Denies dizziness, Denies otalgia, Denies headache(s), Denies nasal congestion, Denies neck pain, Denies odynophagia and Denies sore throat Card Denies chest pain, Denies rapid heart rate, Denies irregular heart rhythm, Reports palpitations (on and off but not as frequent as before) and Denies dyspnea Resp Denies cough, Denies dyspnea and Denies wheezing GI Denies abdominal pain, Denies bloating, Denies constipation, Denies dysphagia, Denies heartburn, Denies diarrhea, Denies nausea, Denies odynophagia and Denies vomiting Denies hematuria, Denies difficulty urinating, Denies erectile dysfunction (improved with Rx), Denies dysuria, Denies urinary frequency and Denies urinary urgency Musc Denies back pain, Denies arthralgias, Denies joint swelling, Denies muscle weakness and Denies neck pain Skin/Breast Reports rash (scaling rash over scalp, along the hairline & over bearded areas on face) Neuro Denies dizziness, Denies headache(s), Denies paresthesias and Denies weakness Endo Denies fatigue and Reports palpitations (on and off but not as frequent as before) Aller/Immun Denies itchy eyes and Denies wheezing Physical exam (Primary Care) Vital Signs: Last Vital Signs Pulse 110 H 11/14/23 16:57 BP 136/82 11/14/23 16:57 Pulse Ox 98 11/14/23 16:57 Oxygen Delivery Method Room Air 11/14/23 16:57 BMI result Body Mass Index 31.2 Tobacco/Smoking Status: Tobacco use Status Tobacco use date assessed 07/16/23 11/14/23 17:02 Patient Tobacco Use Status Never used Tobacco 11/14/23 17:02 e-Cigarette/Vaping Use Never Used 11/14/23 17:02 Thrive Assessment: Date of Thrive Assessment Date Thrive assessed 07/16/23 11/14/23 17:02 Const General: no acute distress, alert and awake Orientation/consciousness: patient oriented x3 HENMT Head: Yes normocephalic and Yes atraumatic Ears: external ears normal, TM's normal bilaterally and EAC's normal General nose exam: No nasal discharge present Face and sinus: Yes normal facial exam and Yes sinuses nontender Teeth and gingiva: dentition normal Throat: Yes posterior oropharynx normal and Yes tonsils normal (no TP congestion) Eyes Eyelids: Yes eyelids normal Conjunctivae: conjunctivae normal Pupils: Equal, round and reactive pupils present EOM: EOMs intact bilaterally Neck Neck: Yes no lymphadenopathy and Yes supple Thyroid: Thyroid normal Resp Auscultation: clear to auscultation bilaterally, no rales and no wheezes Cardio Rate: tachycardic Rhythm: regular rhythm Heart sounds: no murmurs GI Palpation (GI): Soft to palpation, nontender and No hepatosplenomegaly present Auscultation: normal bowel sounds General: Yes no CVA tenderness Back/Spine/Pelvis Back: no CVA tenderness Thoracic/Lumbar Spine: thoracic and lumbar spine normal to inspection Skin Other: (+) small patches of scaling rash scattered over the scalp, along the hairline and over some of the bearded areas on the face Lesions: no lesions Neuro General: patient oriented x3, moves all extremities, no focal motor deficits and CN's II-XI intact bilaterally Cranial nerves: Yes Equal, round and reactive pupils present Cognition (Neuro): normal cognition Gait exam (Neuro): Normal gait present Extrem General: Yes no clubbing, cyanosis or edema Assessment and Plan Assessment & Plan (1) Annual physical exam: Code(s): Z00.00 - Encounter for general adult medical examination without abnormal findings Plan: Check labs (2) Tachycardia: Code(s): R00.0 - Tachycardia, unspecified Plan: He was seen by cardiology for further evaluation and had echocardiogram and Holter monitoring done, which showed no significant abnormalities His Holter monitor did show that his HR is greater than 100/min around 49% of the time He also had chest x-rays and PFTs done last year, which came out normal Other than symptoms of mild HERR, which are likely due to physical deconditioning and his weight, he has no concerning symptoms of lightheadedness or exertion- induced chest pain or discomfort Labs done a few months ago were also all unrevealing He takes Adderall XR for his ADHD and also admits to drinking routinely 2 cups of coffees in the morning and an energy drink in the afternoon and he has been advised about these adding to his overall increased intake of stimulants and to try cutting back on these He has also been advised on adequate hydration and rest/sleep as well as the benefits of regular exercise and some weight loss Patient states that he has started implementing some of these changes already and overall feels that he is in the best shape of his life in a long time He has been advised by cardiology as well that there is currently no indication for any heart-rate lowering or inotropic medications at this time He will follow up with cardiology again in 1 year (3) Mixed hyperlipidemia: Code(s): E78.2 - Mixed hyperlipidemia Plan: Reinforced low cholesterol diet He is reminded that his cholesterol numbers last year were all borderline high and he should work on improving these Will recheck his labs and fasting lipids for follow up (4) GERD (gastroesophageal reflux disease): Code(s): K21.9 - Gastro-esophageal reflux disease without esophagitis Qualifiers: Esophagitis presence: without esophagitis Qualified Code(s): K21.9 - Gastro-esophageal reflux disease without esophagitis Plan: Reinforced dietary restrictions Continue Famotidine 20 mg Q HS He is advised that if his symptoms persist, will need to consider starting him on a PPI and/or refer him to GI for possible EGD Advised that losing some weight may help relieve his symptoms (5) Vitamin D deficiency: Code(s): E55.9 - Vitamin D deficiency, unspecified Plan: Continue Vitamin D3 2000 units QD (6) Erectile dysfunction: Code(s): N52.9 - Male erectile dysfunction, unspecified Qualifiers: Erectile dysfunction type: unspecified Qualified Code(s): N52.9 - Male erectile dysfunction, unspecified Plan: Continue Tadalafil 5 mg QD PRN Follow up with urology (Dr. Irvin) as scheduled (7) Attention deficit hyperactivity disorder (ADHD): Code(s): F90.9 - Attention-deficit hyperactivity disorder, unspecified type Qualifiers: Attention deficit-hyperactivity disorder type: combined inattentive- hyperactive Qualified Code(s): F90.2 - Attention-deficit hyperactivity disorder, combined type Plan: Continue Adderall XR 20 mg QD Follow up with psychiatry at [facility] as scheduled (8) Anxiety: Code(s): F41.9 - Anxiety disorder, unspecified Plan: Patient is still going to counseling regularly as he feels that his anxiety is adequately controlled currently Have recommended in the past that he can try some Rx like Sertraline or Citalopram but he would like to hold off on any more Rx at this time (9) Obesity (BMI 30-39.9): Code(s): E66.9 - Obesity, unspecified Plan: Reinforced diet/exercise as tolerated/ lose weight Plan Follow up in 6 months Coding Level of Care Code Est Pt Prev Care 18-39y(25114) Diagnoses Annual physical exam Z00.00 Tachycardia R00.0 Mixed hyperlipidemia E78.2 Gastroesophageal reflux disease without esophagitis K21.9 Esophagitis presence: without esophagitis Vitamin D deficiency E55.9 Erectile dysfunction, unspecified erectile dysfunction type N52.9 Erectile dysfunction type: unspecified Attention deficit hyperactivity disorder (ADHD), combined type F90.2 Attention deficit-hyperactivity disorder type: combined inattentive- hyperactive Anxiety F41.9 Obesity (BMI 30-39.9) E66.9
== END 2023-11-14 17:37 | disposition home or self-care (01) ==
PROVIDERS: PCP Internal Medicine; Visit Provider Internal Medicine
DX: Z00.00 Encounter for general adult medical examination without abnormal findings (principal); R00.0 Tachycardia, unspecified; E66.9 Obesity, unspecified; Z68.31 Body mass index [BMI] 31.0-31.9, adult; E78.2 Mixed hyperlipidemia; K21.9 Gastro-esophageal reflux disease without esophagitis; E55.9 Vitamin D deficiency, unspecified; N52.9 Male erectile dysfunction, unspecified; F90.2 Attention-deficit hyperactivity disorder, combined type; F41.9 Anxiety disorder, unspecified
CPT/HCPCS: 99395

== ENCOUNTER 2024-07-04 16:36 | Outpatient (AMB) | payer OTHER, SELFPAY ==
--- OUTSIDE RECORDS SUMMARY | 2024-07-04 16:37 | XMS_ITS | Encounter Summary ---
Author Organization [facility] Address [address] [place] [id number] Phone Care Team Providers Care Community Health Nurse Name Role Phone Sigifredo Feliciano MD Primary Care Provider [phone] Encounter Details Date Type Department Care Team (Late st Contact Info) Description 10/07/2017 Conversion Encounter [facility] [address] [place] [id number] Sigifredo Feliciano MD [address] [place] [address] Social History Tobacco Use Types Packs/Day Years Used Date Smoking Tobacco: Never Assessed Sex and Gender Information Value Date Recorded Sex Assigned at Not on file Legal Sex Male 6:10 PM EDT Gender Identity Not on file Sexual Orientation Not on file documented as of this encounter Plan of Treatment Not on file documented as of this encounter Visit Diagnoses Not on filedocumented in this encounter Care Teams Community Health Nurse Relationship Specialty Start Date End Date Sigifredo Feliciano MD [address] [place] [address] PCP - General 09/26/17 04/22/24 documented as of this encounter
[2024-07-04 16:52] VITALS: BP 110/70; PULSE 97; O2SAT 98; BMI 33.4
--- NOTE | 2024-07-04 16:52 | MHC.PC.OV ---
Vital Signs 07/04/24 16:52 Height 5 ft 8 in Weight 219 lb 8 oz BMI 33.4 BP 110/70 Blood Pressure Location Lt brachial Position Sitting Pulse 97 Pulse Source Pulse Oximeter Pulse Oximetry (%) 98 Oxygen Delivery Method Room Air Intake Visit Reasons: 6 month f/u Net Repairer Required: No Accompanied by: Self / Same As Patient Allergies amoxicillin Allergy (Unknown, Verified 07/04/24 17:14) unknown Medication List - Last Reconciled 07/04/24 by Derik Blanchard MD cholecalciferol (vitamin D3) 50 mcg PO DAILY 90 days dextroamphetamine-amphetamine 20 mg ER (Adderall XR) 1 cap PO QAM famotidine 20 mg PO BEDTIME PRN fluoxetine 20 mg PO DAILY tadalafil 5 mg PO DAILY 90 days Tobacco use date assessed: 07/04/24 Dental Screening Dental Screen Date: 07/04/24 Did you have a dental visit in the last 12 months?: No Did you have a dental problem in the last 6 months where you did not have access to dental care?: No Was dental information given to patient?: No HPI 6 month f/u HPI Details Patient comes in today for his follow up visit States that he had to bring his fililiyae to the ER a couple of days ago for increasing sore throat and sudden onset of difficulty breathing - was diagnosed with a severe case of strep throat and was started on Abx States that his fililiyae is feeling better now but he thinks that he may have been the one who passed on the strep throat to her as he has been sick since the winter break a couple of months ago, with recurrent nasal and sinus congestion and on and off sore throat States that his sore throat has just cleared up recently but he would still like to get tested for strep throat in the office today just to check it out Recalls that he has had on and off sore throat for a while since sometime in mid April and he also ran a low-grade fever for a week or so around that time He currently denies any headaches or dizziness and has not had any fever lately but adds that he continues to snore very heavily when he is sleeping at night to the point where he has to sleep on the couch recently so as not to keep his fiancee awake He also reports that he has had to drink a lot of coffee during the day to stay awake and he would now like to be assessed for possible sleep apnea Denies any chest pains, no increased shortness of breath although he still has some lingering cough and congestion No nausea/vomiting, no abdominal pain No change in bowel habits noted He has no follow-up labs done recently [facility] Medical History Vitamin D deficiency Mixed hyperlipidemia Obesity (BMI 30-39.9) Anxiety GERD (gastroesophageal reflux disease) Erectile dysfunction Attention deficit hyperactivity disorder (ADHD) Surgical History No significant past surgical history Family History Father Hypertension Other Family history non-contributory Mental health problem Substance abuse Social History Housing: Apartment Alcohol intake: former Patient Tobacco Use Status: Never used Tobacco e-Cigarette/Vaping Use: Never Used Second Hand Smoke Exposure: No Substance Use Type: Marijuana service: No Current occupational status: employed Current occupational exposures/hazards: No Cognitive needs: No Hearing needs: No Vision needs: No Questionnaire PHQ-9 Over the last 2 weeks, how often have you been bothered by any of the following problems? 1. Little interest or pleasure in doing things: more than half the days 2. Feeling down, depressed, or hopeless: several days 3. Trouble falling or staying asleep, or sleeping too much: nearly every day 4. Feeling tired or having little energy: nearly every day 5. Poor appetite or overeating: more than half the days 6. Feeling bad about yourself - or that you are a failure or have let yourself or your family down: not at all 7. Trouble concentrating on things, such as reading the newspaper or watching television: several days 8. Moving or speaking so slowly that other people could have noticed. Or the opposite - being so fidgety or restless that you have been moving around a lot more than usual: not at all 9. Thoughts that you would be better off or of hurting yourself in some way: not at all Total score: 12 Depression Screening Interpretation: Positive Depression Screening Follow-up: Existing condition and In treatment (is seeing psychiatry regularly) Depression Screening Done: Yes 42858 - PHQ-9 Billing: Yes Source: Developed by Drs. Sigifredo Escobar, Drew Champagne and colleagues, with an educational clover from [employer]. Thrive Questionnaire Date Thrive assessed: 07/04/24 I am a: Patient What is your living situation today?: I have a steady place to live Within the past 12 months, did the food you bought not last and you didn't have the money to get more?: Never true Within the past 12 months, did you worry whether your food would run out before you got money to buy more?: Never true Do you have trouble paying for medicines?: No Do you have trouble getting transportation to medical appointments?: No Do you have trouble paying your heating and electricity bill?: No Do you have trouble taking care of your child, family member or friend?: No Do you have trouble with day-to-day activities such as bathing, preparing meals, shopping, managing finances, etc.?: No Are you currently unemployed and looking for a job?: No Are you interested in more education?: No Please select the resources that you would like help with: None Currently or been in a relationship where the following occur: No concerns reported THRIVE Score: 0 AUDIT C Alcohol Use Questionnaire (AUDIT-C) 1. How often do you have a drink containing alcohol?: Never 3. How often do you have six or more drinks on one occasion?: Never Total Score: 0 Score Reviewed/Action Taken: Yes SKY-7 AMB Questionnaire SKY-7 Date SKY - 7 assessed: 07/04/24 Feeling nervous, anxious, or on edge: 0 = Not at all Not being able to stop or control worryin = Not at all Worrying too much about different things: 0 = Not at all Trouble relaxin = Not at all Being so restless that it is hard to sit still: 0 = Not at all Becoming easily annoyed or irritable: 0 = Not at all Feeling afraid as if something awful might happen: 0 = Not at all Total SKY-7 score (0-4 normal; 5-9 mild; 10-14 moderate; 15-21 severe): 0 Source: Developed by eLna Jacob Kenton, Drew Owens and colleagues, with an educational clover from [employer]. Review of Systems Const Denies chills, Reports daytime sleepiness, Denies fatigue, Denies fever(s), Denies headache(s) and Reports snoring ENT Denies dysphagia, Denies dizziness, Denies otalgia, Denies headache(s), Reports nasal congestion (on and off), Denies neck pain, Denies odynophagia and Denies sore throat (just resolved recently) Card Denies chest pain, Denies irregular heart rhythm, Reports palpitations (on and off but not as frequent as before) and Denies dyspnea Resp Reports chest congestion (mild; is just clearing up), Denies cough, Denies dyspnea, Reports snoring and Denies wheezing GI Denies abdominal pain, Denies constipation, Denies dysphagia, Denies heartburn, Denies diarrhea, Denies nausea, Denies odynophagia and Denies vomiting Denies difficulty urinating, Denies erectile dysfunction (improved with Rx), Denies dysuria and Denies urinary frequency Musc Denies back pain, Denies arthralgias and Denies neck pain Skin/Breast Denies rash Neuro Denies dizziness, Denies headache(s) and Denies paresthesias Psych Reports anxiety and Reports depression Endo Denies fatigue and Reports palpitations (on and off but not as frequent as before) Aller/Immun Denies wheezing Physical exam (Primary Care) Vital Signs: Last Vital Signs Pulse 97 07/04/24 16:52 BP 110/70 07/04/24 16:52 Pulse Ox 98 07/04/24 16:52 Oxygen Delivery Method Room Air 07/04/24 16:52 BMI result Body Mass Index 33.4 Tobacco/Smoking Status: Tobacco use Status Tobacco use date assessed 07/04/24 07/04/24 16:56 Patient Tobacco Use Status Never used Tobacco 07/04/24 16:56 e-Cigarette/Vaping Use Never Used 07/04/24 16:56 PHQ-9: PHQ-9 Score PHQ-9: Total score 12 07/04/24 17:24 Depression Screening Interpretation: Positive Depression Screening Follow-up: Existing condition and In treatment (is seeing psychiatry regularly) Thrive Assessment: Date of Thrive Assessment Date Thrive assessed 07/04/24 07/04/24 16:56 Currently or been in a relationship where the following occur: No concerns reported Const General: no acute distress and alert HENMT Ears: TM's normal bilaterally and EAC's normal Throat: Yes posterior oropharynx normal and Yes tonsils normal (no TP congestion) Neck Neck: Yes supple and No lymphadenopathy Thyroid: Thyroid normal Resp Auscultation: clear to auscultation bilaterally, no rales, rhonchi (occasional) upper bilaterally and no wheezes Cardio Rate: regular rate Rhythm: regular rhythm Heart sounds: no murmurs GI Palpation (GI): Soft to palpation and nontender Auscultation: normal bowel sounds General: Yes no CVA tenderness Back/Spine/Pelvis Back: no CVA tenderness Thoracic/Lumbar Spine: thoracic and lumbar spine normal to inspection Skin Rashes: no rashes Extrem General: Yes no clubbing, cyanosis or edema Results AMB Rapid Strep AMB Rapid Strep Negative Last Edit by BOY Nath on 07/04/24 17:25 Results Reviewed Results Reviewed: Laboratory Last Values Strep Scn Rapid Clinic Negative 07/04/24 17:24 Coding Level of Care Code Est Pt Level 4 (07626) Diagnoses Pharyngitis, unspecified etiology J02.9 Pharyngitis/tonsillitis etiology: unspecified etiology Upper respiratory tract infection, unspecified type J06.9 URI type: unspecified URI Chronic nasal congestion R09.81 Daytime somnolence R40.0 Mixed hyperlipidemia E78.2 Gastroesophageal reflux disease without esophagitis K21.9 Esophagitis presence: without esophagitis Vitamin D deficiency E55.9 Erectile dysfunction, unspecified erectile dysfunction type N52.9 Erectile dysfunction type: unspecified Attention deficit hyperactivity disorder (ADHD), combined type F90.2 Attention deficit-hyperactivity disorder type: combined inattentive-hyperactive Anxiety F41.9 Obesity (BMI 30-39.9) E66.9 Additional Codes PHQ-9 - 59276 - PHQ-9 Billing: Yes ([id number]) Assessment & Plan Assessment & Plan (1) Pharyngitis: Code(s): J02.9 - Acute pharyngitis, unspecified Category: Medical Qualifiers: Pharyngitis/tonsillitis etiology: unspecified etiology Qualified Code(s): J02.9 - Acute pharyngitis, unspecified Plan: Patient states that he's had on and off sore throat for the past couple of months and his throat symptoms just cleared up recently but he would still like have a strep test done to check this out His in-office strep test done today came out negative (2) Upper respiratory tract infection: Code(s): J06.9 - Acute upper respiratory infection, unspecified Category: Medical Qualifiers: URI type: unspecified URI Qualified Code(s): J06.9 - Acute upper respiratory infection, unspecified Plan: Will go ahead and start him empirically on Doxycycline 100 mg BID x 7 days (3) Chronic nasal congestion: Code(s): R09.81 - Nasal congestion Category: Medical Plan: Patient recalls that he was hit on the nose by a ball years ago when he was younger and that is his then, he has had frequent/recurrent nasal congestion - suspects that he may have suffered a nasal septal injury and he would like to have ENT look into this Per request, will refer him to ENT for further evaluation and management (4) Daytime somnolence: Code(s): R40.0 - Somnolence Category: Medical Plan: Will refer him to sleep Medicine for further evaluation and management and to assess him for possible sleep apnea (5) Mixed hyperlipidemia: Code(s): E78.2 - Mixed hyperlipidemia Category: Medical Plan: Reinforced low cholesterol diet Will recheck his labs and fasting lipids in a few months for follow up (6) GERD (gastroesophageal reflux disease): Code(s): K21.9 - Gastro-esophageal reflux disease without esophagitis Category: Medical Qualifiers: Esophagitis presence: without esophagitis Qualified Code(s): K21.9 - Gastro-esophageal reflux disease without esophagitis Plan: Dietary restrictions reinforced Continue Famotidine 20 mg Q HS (7) Vitamin D deficiency: Code(s): E55.9 - Vitamin D deficiency, unspecified Category: Medical Plan: Continue Vitamin D3 2000 units QD (8) Erectile dysfunction: Code(s): N52.9 - Male erectile dysfunction, unspecified Category: Medical Qualifiers: Erectile dysfunction type: unspecified Qualified Code(s): N52.9 - Male erectile dysfunction, unspecified Plan: Continue Tadalafil 5 mg QD PRN Follow up with urology (Dr. Irvin) as scheduled (9) Attention deficit hyperactivity disorder (ADHD): Code(s): F90.9 - Attention-deficit hyperactivity disorder, unspecified type Category: Medical Qualifiers: Attention deficit-hyperactivity disorder type: combined inattentive-hyperactive Qualified Code(s): F90.2 - Attention-deficit hyperactivity disorder, combined type Plan: Continue Adderall XR 20 mg QD Follow up with psychiatry at [facility] as scheduled (10) Anxiety: Code(s): F41.9 - Anxiety disorder, unspecified Category: Medical Plan: Continue Fluoxetine 20 mg QD Follow-up with Psychiatry as scheduled (11) Obesity (BMI 30-39.9): Code(s): E66.9 - Obesity, unspecified Category: Medical Plan: Reinforced diet/exercise as tolerated/lose weight Plan To return as scheduled in November 2024 for his annual physical examination Will have him try to get some labs done just before he comes in for his appointment in November 2024 Orders: Orders Vitamin D 25-OH Total 11/08/24 E55.9 - Vitamin D deficiency, unspecified, Z00.00 - Encounter for general adult medical examination without abnormal findings AMB Rapid Strep Screen 07/04/24 Z13.9 - Encounter for screening, unspecified Complete Blood Count Auto Diff 11/08/24 D64.9 - Anemia, unspecified, Z00.00 - Encounter for general adult medical examination without abnormal findings Lipid Panel 11/08/24 E78.00 - Pure hypercholesterolemia, unspecified, Z00.00 - Encounter for general adult medical examination without abnormal findings Comprehensive [place]. Panel Fast 11/08/24 E78.00 - Pure hypercholesterolemia, unspecified, Z00.00 - Encounter for general adult medical examination without abnormal findings TSH reflex Free T4 11/08/24 E78.00 - Pure hypercholesterolemia, unspecified, Z00.00 - Encounter for general adult medical examination without abnormal findings UA CC w/rflx Micro + Cult 11/08/24 R30.0 - Dysuria, Z00.00 - Encounter for general adult medical examination without abnormal findings Referrals Ear/Nose/Throat Referral R09.81 - Nasal congestion Sleep Medicine Referral R06.83 - Snoring, R40.0 - Somnolence Medications: New doxycycline hyclate 100 mg PO BID 7 days 14 caps 0RF
== END 2024-07-04 17:14 | disposition home or self-care (01) ==
PROVIDERS: PCP Internal Medicine; Visit Provider Internal Medicine
DX: Z13.9 Encounter for screening, unspecified (principal)

== ENCOUNTER → 2024-07-04 16:36 | Outpatient (BNVA) | payer OTHER, SELFPAY | PROVIDERS: PCP Internal Medicine; Visit Provider Internal Medicine | DX: J02.9 Acute pharyngitis, unspecified (principal); J06.9 Acute upper respiratory infection, unspecified; R09.81 Nasal congestion; R40.0 Somnolence; E78.2 Mixed hyperlipidemia; K21.9 Gastro-esophageal reflux disease without esophagitis; E55.9 Vitamin D deficiency, unspecified; N52.9 Male erectile dysfunction, unspecified; F90.2 Attention-deficit hyperactivity disorder, combined type; F41.9 Anxiety disorder, unspecified; E66.9 Obesity, unspecified; Z68.33 Body mass index [BMI] 33.0-33.9, adult; Z79.899 Other long term (current) drug therapy | CPT/HCPCS: 87880; 96127 ==

== ENCOUNTER 2024-07-14 14:38 | Outpatient (AMB) | payer OTHER, SELFPAY ==
--- NOTE | 2024-07-14 15:02 | A.OFFVIS_ITS ---
Vital Signs 07/14/24 15:04 Height 5 ft 8 in Weight 221 lb 6 oz BMI 33.7 BP 126/80 Blood Pressure Location Lt brachial Position Sitting Pulse 102 H Pulse Source Pulse Oximeter Pulse Oximetry (%) 98 Oxygen Delivery Method Room Air Intake Visit Reasons: INP-Somnolence / Snoring Intake Note: In patient referral for daytime somnolence and snoring. Track Broom Operator Required: No Accompanied by: Self / Same As Patient Allergies amoxicillin Allergy (Unknown, Verified 07/14/24 15:04) unknown HPI Comments Details: 29 year old male referred to us for sleep evaluation by his PCP. 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 He wakes up fatigued daily and snores loudly per his fiances. He stops breathing several times a night. He has been taking Adderall since 2020 and still feels exhausted most days. He denies RLS and morning headches. His diet is poor, he has acid reflux and take an atacid as needed. He sees a therapist once a month and is trying to walk daily. His mood is better now, with Fluoxetine. He is not a smoker and does not drink alcohol. He c/o psoriasis and is using a zinc based shampoo. [facility] Medical History Vitamin D deficiency Mixed hyperlipidemia Obesity (BMI 30-39.9) Anxiety GERD (gastroesophageal reflux disease) Erectile dysfunction Attention deficit hyperactivity disorder (ADHD) Surgical History No significant past surgical history Family History Father Hypertension Other Family history non-contributory Mental health problem Substance abuse Social History Housing: Apartment Alcohol intake: former Patient Tobacco Use Status: Never used Tobacco e-Cigarette/Vaping Use: Never Used Second Hand Smoke Exposure: No Substance Use Type: Marijuana service: No Current occupational status: employed Current occupational exposures/hazards: No Cognitive needs: No Hearing needs: No Vision needs: No Review of Systems Const All systems reviewed & are unremarkable except as noted in HPI and below Physical Exam Vital Signs: Last Vital Signs Pulse 102 H 07/14/24 15:04 BP 126/80 07/14/24 15:04 Pulse Ox 98 07/14/24 15:04 Oxygen Delivery Method Room Air 07/14/24 15:04 BMI result Body Mass Index 33.7 Const General: cooperative, comfortable and no acute distress Nutritional Appearance: average body habitus and obese (BMI is 33.7) Orientation/consciousness: patient oriented x3 HEENT Face and sinus: Yes normal facial exam and Yes face symmetric Teeth and gingiva: other (Mallmpti score is 3) Eyes Pupils: Equal, round and reactive pupils present Neck Neck: Yes full ROM and Yes supple Resp Effort & Inspection: normal respiratory effort and able to speak in complete sentences Neuro General: patient oriented x3 and moves all extremities Cranial nerves: Yes CN's II-XII intact bilaterally, Yes Facial sensation intact/muscles of mastication intact, Yes Equal, round and reactive pupils present, Yes Normal accommodation reflex present, Yes Bilaterally intact EOM present, Yes Nystagmus not present, Yes Normal facial strength present, Yes Midline tongue present, Yes Ability to bilaterally rotate head present and Yes Ability to bilaterally elevate shoulders present Cognition (Neuro): normal cognition Gait exam (Neuro): Normal gait present Motor exam (neuro): 5/5 motor strength present throughout and Normal motor muscle tone present throughout Deep tendon reflexes (DTR's): Right triceps reflex intensity grade: 2+, Left triceps reflex intensity grade: 2+, Rt Biceps (C5, C6): 2+, Left biceps reflex intensity grade: 2+, Right brachioradialis reflex intensity grade: 2+, Left brachioradialis reflex intensity grade: 2+, Right patellar reflex intensity grade: 2+, Left patellar reflex intensity grade: 2+, Right ankle reflex intensity grade: 2+ and Left ankle reflex intensity grade: 2+ Psych Thought process: Normal thought process present Thought content: Normal thought content present Assessment & Plan Assessment & Plan (1) Fatigue due to sleep pattern disturbance: Code(s): R53.83 - Other fatigue; G47.9 - Sleep disorder, unspecified Category: Medical Plan snoring will evaluate with HST Labs to r/o deficiencies Orders: Orders IRON PROFILE Today G47.9 - Sleep disorder, unspecified, R53.83 - Other fatigue Vitamin B12 and Folate Today G47.9 - Sleep disorder, unspecified, R53.83 - Other fatigue Methylmalonic Acid Today G47.9 - Sleep disorder, unspecified, R53.83 - Other fatigue RT home sleep study Today G47.19 - Other hypersomnia Homocysteine Today G47.9 - Sleep disorder, unspecified, R53.83 - Other fatigue Patient Instructions: Sleep Hygiene set a strict bed time and morning routine, sleep in a cool, dark room, no devices in bed. Limit fluid intake 2 hours prior to bedtime, may diffuse essential oils or read a book. BMI is elevated, start walking daily or hiking and biking and increase water intake. Coding Level of Care Code New Pt Level 4 (98108) Diagnoses Fatigue due to sleep pattern disturbance R53.83; G47.9 Time Spent (min) 30 Comment Baseline Evaluation of Sleep Sleep Questionnaire Difficulty falling asleep: No Difficulty staying asleep?: Yes Number of arousals: 2-3 Snoring: Yes Witnessed apneas: Yes Gasping arousals: Yes Nocturia: No GERD: Yes Vivid dreams: No Acting out dreams: Yes Abnormal behavior in sleep: Yes Abnormal movements in sleep: No Morning headaches: No Excessive daytime sleepiness: Yes Daytime naps: Yes (15 min to hours) Restless legs: No Hallucinations: No Sleep paralysis: No Drop attacks: No Sleep Study: No CPAP: No
[2024-07-14 15:04] VITALS: BP 126/80; PULSE 102; O2SAT 98; BMI 33.7
--- OUTSIDE RECORDS SUMMARY | 2024-07-14 16:54 | XMS_ITS | Encounter Summary ---
Author Organization [facility] Address [address] [place] [id number] Phone Care Team Providers Care Payable Processor Name Role Phone Sigifredo Feliciano MD Primary Care Provider [phone] Encounter Details Date Type Department Care Team (Late st Contact Info) Description 10/07/2017 Conversion Encounter [facility] [address] [place] [address] Sigifredo Feliciano MD [address] [place] [address] Social History Tobacco Use Types Packs/Day Years [...] on filedocumented in this encounter Care Teams Payable Processor Relationship Specialty Start Date End Date Sigifredo Feliciano MD [address] [place] [address] PCP - General 09/26/17 04/22/24 documented as of this encounter
--- OUTSIDE RECORDS SUMMARY | 2024-07-14 16:54 | XMS_ITS | Clinical Summary ---
Author Organization [facility] Address [address] [place] [id number] Phone Care Team Providers Care Seamless Tube Drawer Name Role Phone Unavailable Primary Care Provider Unavailabl e Immunizations Immunization Administration Dates Next Due DTaP 06/08/2006, 6,12/25/2000,06/18,1995 Hep B, ped/adol 1995,1995,1995 Hib (PRP-T) 06/18/1996, 6,1995,04/11 IPV 08/09/2005, 6,12/25/2000,04/11 Influenza, injectable, quadrivalent 06/14/2012,1 06/23/2009 MMR 12/25/2000,02/11/1996 Meningococcal Conj (Menactra) MCV4P 06/14/2012,0 01/23/2007 Td (adult) (Tenivac), 5 Lf t etanus toxoid, PF, adsorbed 07/03/2006 Tdap 07/03/2005 Varicella 01/01/2009,10/17/1996 Family History Relation Name Status Comments Father Alive heart attack ag e 41 age: 48 diagnosed with HEART DISEASE NOS Maternal Grandfather Alive faulty aortic valve, replaced with a titanium aortic valve diagnosed with HEART DISEASE NOS Maternal Grandmother Alive [place] at 5 5 diagnosed with HEART DISEASE NOS Mother Alive scleroderma/ thomas pus age: 45 Paternal Grandfather [place], d before Petar was born diagnosed with HEART DISEASE NOS Paternal Grandmother Alive Healthy Social History Tobacco Use Types Packs/Day Years Used Date Smoking Tobacco: Never Assessed Sex and Gender Information Value Date Recorded Sex Assigned at Not on file Legal Sex Male 6:10 PM EDT Gender Identity Not on file Sexual Orientation Not on file Last Filed Vital Signs Vital Sign Reading Time Taken Comments Blood Pressure 118/68 12/04/2013 12:00 AM EDT Pulse - - Temperature 36.8 ??C (98.2 ??F) 01/18/2012 1 2:00 AM EDT Respiratory Rate - - Oxygen Saturation - - Inhaled Oxygen Concentration - - Weight 66.6 kg (146 lb 12.8 oz) 014 12:00 AM EDT Height 171.5 cm (5' 7.5 ) 12/04/2013 12 :00 AM EDT Body Mass Index 22.65 12/04/2013 12:00 AM EDT Plan of Treatment Health Maintenance Due Date Last Done Comments Consider Men B Vaccine (1 of 2 - Bexsero 2-dose series) 2011 DTaP,Tdap,and Td Vaccines (8 - Td or Tdap) 07/03/2016 07/03/2006, 06/08/2006, 08/09/2005, Additional history exists Influenza Vaccines (#1) 2023 06/14/2012, 04/22 COVID-19 Vaccine (2023- season) 2024 Hepatitis B Vaccines Completed 1995, 1995, 1995 HIB Vaccines Completed 06/18/1996, 07/20, 1995, Additional history exists MMR Vaccines Completed 12/25/2000, 02/11/1996 IPV Vaccines Completed 08/09/2005, 05/22, 12/25/2000, Additional history exists Varicella Vaccines Completed 01/01/2009, 10/17/1996 Meningococcal Vaccine Completed 06/14/2012, 007 HPV Vaccines Aged Out No longer eligi ble based on patient's age to complete this topic Hepatitis A Vaccines Aged Out No long er eligible based on patient's age to complete this topic Men B Vaccine Aged Out No longer elig ible based on patient's age to complete this topic Pneumococcal Vaccine Aged Out No long er eligible based on patient's age to complete this topic
== END 2024-07-14 15:56 | disposition home or self-care (01) ==
PROVIDERS: PCP Internal Medicine; Visit Provider Physician Assistant Medical
DX: R53.83 Other fatigue (principal); G47.9 Sleep disorder, unspecified
CPT/HCPCS: 99204

== ENCOUNTER → 2024-07-14 14:38 | Outpatient (BNVA) | payer OTHER, SELFPAY | PROVIDERS: PCP Internal Medicine; Visit Provider Physician Assistant Medical ==

== ENCOUNTER 2024-10-17 15:54 | Outpatient (AMB) | payer OTHER, SELFPAY ==
--- OUTSIDE RECORDS SUMMARY | 2024-10-17 15:56 | XMS_ITS | Clinical Summary ---
Author Organization [facility] Address [address] [place] [phone] Phone Care Team Providers Care Compensation Vice President Name Role Phone Unavailable Primary Care Provider [...] with HEART DISEASE NOS Maternal Grandmother Alive [place] at 5 5 diagnosed with HEART DISEASE NOS Mother Alive scleroderma/ thomas pus age: 45 Paternal Grandfather [place], d before Petar was born diagnosed with [...] Health Maintenance Due Date Last Done Comments DTaP,Tdap,and Td Vaccines (8 - Td or Tdap) 07/03/2016 07/03/2006, 06/08/2006, 08/09/2005, Additional history exists Influenza Vaccines (#1) 2023 06/14/2012, 04/22 COVID-19 Vaccine ( season) 2024 Hepatitis B Vaccines Completed 1995, [...]
--- NOTE | 2024-10-17 15:57 | A.OFFVIS_ITS ---
Intake Visit Reasons: 1 year follow up Intake Note: Patient is present for 1Y F/U Urology Medication:TADALAFIL Antibiotic Allergy:AMOXICILLIN Blood Thinner:NONE Chart Clerk Required: No Allergies amoxicillin Allergy (Unknown, Verified 10/17/24 15:59) unknown HPI Comments Details: Rubens Segura is a very pleasant male. He is patient of Dr Blanchard. He is seen for the following urologic conditions. - erectile dysfuction Yearly follow-up Continue good response to daily tadalafil Has also started on Prozac Feels that had a positive impact on his premature ejaculation There is emerging data that Adderall can interfere with erectile function and testosterone levels Urinary Symptoms Review - No urinary or incontinence-related symptoms discussed during this visit. Erectile dysfunction Situational anxiety Good response to tadalafil daily 5mg PFSH Medical History Vitamin D deficiency Mixed hyperlipidemia Obesity (BMI 30-39.9) Anxiety GERD (gastroesophageal reflux disease) Erectile dysfunction Attention deficit hyperactivity disorder (ADHD) Surgical History No significant past surgical history Family History Father Hypertension Other Family history non-contributory Mental health problem Substance abuse Social History Housing: Apartment Alcohol intake: former Patient Tobacco Use Status: Never used Tobacco e-Cigarette/Vaping Use: Never Used Second Hand Smoke Exposure: No Substance Use Type: Marijuana service: No Current occupational status: employed Current occupational exposures/hazards: No Cognitive needs: No Hearing needs: No Vision needs: No Review of Systems Const Denies chills and Denies fever(s) Card Reports no additional complaints and Denies syncope Resp Denies cough GI Denies abdominal pain and Denies heartburn Reports as per HPI and Denies change in libido Neuro Denies syncope Psych Denies change in libido Endo Denies change in libido Physical Exam Const General: cooperative, healthy appearing, comfortable and no acute distress Orientation/consciousness: patient oriented x3 HEENT Face and sinus: Yes normal facial exam Mouth: moist mucous membranes Neck Neck: Yes normal visual inspection, Yes full ROM and Yes trachea midline Chest Chest palpation & inspection: normal inspection of the chest Resp Effort & Inspection: normal respiratory effort, able to speak in complete sentences and no respiratory distress GI Inspection: Yes normal to inspection Back/Spine/Pelvis Cervical Spine: normal cervical lordosis Thoracic/Lumbar Spine: thoracic and lumbar spine normal to inspection Skin General skin exam: no rashes or lesions noted Neuro General: patient oriented x3, gait normal, tone normal and moves all extremities Extrem General: Yes normal to inspection and Yes capillary refill normal Assessment & Plan Assessment & Plan (1) Erectile dysfunction: Code(s): N52.9 - Male erectile dysfunction, unspecified Category: Medical Qualifiers: Erectile dysfunction type: unspecified Qualified Code(s): N52.9 - Male erectile dysfunction, unspecified (2) Attention deficit hyperactivity disorder (ADHD): Code(s): F90.9 - Attention-deficit hyperactivity disorder, unspecified type Category: Medical Qualifiers: Attention deficit-hyperactivity disorder type: combined inattentive-h yperactive Qualified Code(s): F90.2 - Attention-deficit hyperactivity disorder, combined type Plan Plan 1. Erectile Dysfunction Plan: Continue Tadalafil. Adjust dosing schedule Sunday, Sunday, Sunday to balance with Prozac impacts. 3. Premature Ejaculation Plan: Tadalafil to manage exacerbation by SSRIs - adjust dosing accordingly. 4. Overweight Plan: Dietary focus on reduced caloric intake, preparation of meals emphasizing low-density foods. 5. Depression Plan: Maintain current Prozac dose for effective symptom control. Discussion Notes During the consultation, we discussed the management of erectile dysfunction and premature ejaculation in relation to Tadalafil use. I explained the impact of Prozac on sexual health and the necessity of a strategic Tadalafil dosing schedule to optimize results and minimize side effects. Emphasis was placed on effective ADHD management with Adderall, without dosage alteration. For weight management, I reinforced the significance of diet over exercise in achieving weight loss and encouraged dietary adjustments with specific strategies for meal prep and food selection, advising strict adherence to portion control. We covered the current minimal dosing of Prozac, with an advisory to maintain it to avoid complexity in future dosing alterations. I addressed all concerns and ensured understanding of treatment plans and follow-up steps. Patient Instructions - Continue Tadalafil on Sunday, Sunday, and Sunday. - Maintain current dosing of Adderall and Prozac. - Focus on dietary modifications to assist in weight management. - Prepare meals with low-density, high-volume foods such as vegetables. - Create a grocery list to aid in meal preparation and stick to it. - Seek follow-up with primary care for further dietary guidance if needed. Medications: Refilled tadalafil administer approximately 30min before sexual activity; do not use more than 1 dose per 24hrs 5 mg PO DAILY 90 days 90 tabs 3RF sexual activity N52.9 - Male erectile dysfunction, unspecified Patient Instructions: This note is constructed using voice recognition software. While every effort has been made to ensure accuracy skin care therapist errors may have been included. Imaging studies, laboratory and physical exam results were discussed and reviewed in detail. No major barriers to patient understanding were identified. An opportunity to ask questions regarding the treatment plan was provided. All questions were answered. The patient expressed understanding and agreement with the above treatment plan. The patient is aware they should contact our office by phone for worsening of their current condition or the appearance of new urologic symptoms. Compliance is encouraged with any medications and followup testing that is ordered. It is a privilege to participate in the urologic care of your patient. If you have any questions or concerns regarding treatment for the above conditions, or other urologic issues, please do not hesitate to contact me. The office telephone contact is [phone]. Sincerely, Dr Kameron Irvin MD, [facility] - Urology Compassionate Specialist Care for the Genitourinary System Coding Level of Care Code Est Pt Level 4 (95127) Complex EM visit Add On G2211 Diagnoses Erectile dysfunction, unspecified erectile dysfunction type N52.9 Erectile dysfunction type: unspecified Attention deficit hyperactivity disorder (ADHD), combined type F90.2 Attention deficit-hyperactivity disorder type: combined inattentive- hyperactive
== END 2024-10-17 16:22 | disposition home or self-care (01) ==
LOC: HO.HUSH 15:55
PROVIDERS: PCP Internal Medicine; Visit Provider Urology
DX: N52.9 Male erectile dysfunction, unspecified (principal); F90.2 Attention-deficit hyperactivity disorder, combined type
CPT/HCPCS: 99214; G2211

== ENCOUNTER → 2024-10-17 15:54 | Outpatient (BNVA) | payer OTHER, SELFPAY | PROVIDERS: PCP Internal Medicine; Visit Provider Urology ==

== ENCOUNTER 2025-02-18 16:18 | Outpatient (AMB) | payer OTHER, SELFPAY ==
--- NOTE | 2025-02-18 16:20 | A.OFFPC_ITS ---
Vital Signs 02/18/25 16:21 Height 5 ft 8 in Weight 202 lb BMI 30.7 BP 124/86 Blood Pressure Location Lt brachial Position Sitting Pulse 94 Pulse Source Pulse Oximeter Temp 97.3 F Temp Source Temporal Artery Scan Pulse Oximetry (%) 99 Oxygen Delivery Method Room Air Intake Visit Reasons: annual exam Allergies amoxicillin Allergy (Unknown, Verified 02/18/25 16:25) unknown Medication List - Last Reconciled 02/18/25 by Derik Blanchard MD cholecalciferol (vitamin D3) 50 mcg PO DAILY 90 days dextroamphetamine-amphetamine 20 mg ER (Adderall XR) 1 cap PO QAM famotidine 20 mg PO BEDTIME PRN fluoxetine 20 mg PO DAILY tadalafil 5 mg PO DAILY 90 days Tobacco use date assessed: 02/18/25 Dental Screening Dental Screen Date: 02/18/25 Did you have a dental visit in the last 12 months?: No Did you have a dental problem in the last 6 months where you did not have access to dental care?: No Was dental information given to patient?: No HPI annual exam HPI Details Patient comes in today for his annual physical examination States that he feels okay He denies any headaches or dizziness Denies any chest pains, no shortness of breath No nausea/vomiting, no abdominal pain No change in bowel habits noted He denies any acute urinary symptoms He was not able to get his previously ordered labs done prior to his appointment today - states that he will try to get these done [facility] Medical History Vitamin D deficiency Mixed hyperlipidemia Obesity (BMI 30-39.9) Anxiety GERD (gastroesophageal reflux disease) Erectile dysfunction Attention deficit hyperactivity disorder (ADHD) Surgical History No significant past surgical history Family History Father Hypertension Other Family history non-contributory Mental health problem Substance abuse Social History Housing: Apartment Alcohol intake: former Patient Tobacco Use Status: Never used Tobacco e-Cigarette/Vaping Use: Never Used Second Hand Smoke Exposure: No Substance Use Type: Marijuana service: No Current occupational status: employed Current occupational exposures/hazards: No Cognitive needs: No Hearing needs: No Vision needs: No Questionnaire PHQ-9 Over the last 2 weeks, how often have you been bothered by any of the following problems? 1. Little interest or pleasure in doing things: not at all 2. Feeling down, depressed, or hopeless: several days 3. Trouble falling or staying asleep, or sleeping too much: nearly every day 4. Feeling tired or having little energy: nearly every day 5. Poor appetite or overeating: several days 6. Feeling bad about yourself - or that you are a failure or have let yourself or your family down: not at all 7. Trouble concentrating on things, such as reading the newspaper or watching television: not at all 8. Moving or speaking so slowly that other people could have noticed. Or the opposite - being so fidgety or restless that you have been moving around a lot more than usual: not at all 9. Thoughts that you would be better off or of hurting yourself in some way: not at all Total score: 8 Depression Screening Interpretation: Positive Depression Screening Follow-up: Existing condition and In treatment Depression Screening Done: Yes 94213 - PHQ-9 Billing: Yes Source: Developed by Drs. Sigifredo Escobar, Lena Fung, Drew Owens and colleagues, with an educational clover from [employer]. Thrive Questionnaire Date Thrive assessed: 02/18/25 I am a: Patient What is your living situation today?: I have a steady place to live Within the past 12 months, did the food you bought not last and you didn't have the money to get more?: Sometimes True Within the past 12 months, did you worry whether your food would run out before you got money to buy more?: Sometimes True Do you have trouble paying for medicines?: No Do you have trouble getting transportation to medical appointments?: No Do you have trouble paying your heating and electricity bill?: No Do you have trouble taking care of your child, family member or friend?: No Do you have trouble with day-to-day activities such as bathing, preparing meals, shopping, managing finances, etc.?: No Are you currently unemployed and looking for a job?: No Are you interested in more education?: No Please select the resources that you would like help with: None Currently or been in a relationship where the following occur: No concerns reported THRIVE Score: 2 AUDIT C Alcohol Use Questionnaire (AUDIT-C) 1. How often do you have a drink containing alcohol?: Never 3. How often do you have six or more drinks on one occasion?: Never Total Score: 0 Score Reviewed/Action Taken: Yes SKY-7 AMB Questionnaire SKY-7 Date SKY - 7 assessed: 07/04/24 Feeling nervous, anxious, or on edge: 0 = Not at all Not being able to stop or control worryin = Not at all Worrying too much about different things: 0 = Not at all Trouble relaxin = Not at all Being so restless that it is hard to sit still: 0 = Not at all Becoming easily annoyed or irritable: 0 = Not at all Feeling afraid as if something awful might happen: 0 = Not at all Total SKY-7 score (0-4 normal; 5-9 mild; 10-14 moderate; 15-21 severe): 0 Source: Developed by Drs. Sigifredo Escobar, Lena Fung, Drew Ownes and colleagues, with an educational clover from [employer]. Review of Systems Const Denies chills, Reports fatigue, Denies fever(s), Denies headache(s), Denies malaise and Denies weakness Eyes Denies blurry vision, Denies change in vision, Denies irritation and Denies itchy eyes ENT Denies dysphagia, Denies dizziness, Denies otalgia, Denies headache(s), Denies nasal congestion, Denies neck pain, Denies odynophagia and Denies sore throat Card Denies chest pain, Denies rapid heart rate, Denies irregular heart rhythm, Denies palpitations and Denies dyspnea Resp Denies chest congestion, Denies cough, Denies dyspnea and Denies wheezing GI Denies abdominal pain, Denies bloating, Denies constipation, Denies dysphagia, Denies heartburn, Denies diarrhea, Denies nausea, Denies odynophagia and Denies vomiting Denies hematuria, Denies difficulty urinating, Denies dysuria, Denies urinary frequency and Denies urinary urgency Musc Denies back pain, Denies arthralgias, Denies joint swelling, Denies muscle weakness and Denies neck pain Skin/Breast Denies change in pigmentation, Denies lesions, Denies rash and Denies unusual bruising Neuro Denies dizziness, Denies headache(s), Denies paresthesias and Denies weakness Endo Reports fatigue and Denies palpitations Aller/Immun Denies itchy eyes and Denies wheezing Physical exam (Primary Care) Vital Signs: Last Vital Signs Temp 97.3 F 02/18/25 16:21 Pulse 94 02/18/25 16:21 BP 124/86 02/18/25 16:21 Pulse Ox 99 02/18/25 16:21 Oxygen Delivery Method Room Air 02/18/25 16:21 BMI result Body Mass Index 30.7 Tobacco/Smoking Status: Tobacco use Status Tobacco use date assessed 02/18/25 02/18/25 16:23 Patient Tobacco Use Status Never used Tobacco 02/18/25 16:23 e-Cigarette/Vaping Use Never Used 02/18/25 16:23 PHQ-9: PHQ-9 Score PHQ-9: Total score 8 02/18/25 16:41 Depression Screening Interpretation: Positive Depression Screening Follow-up: Existing condition and In treatment Thrive Assessment: Date of Thrive Assessment Date Thrive assessed 07/04/24 02/18/25 16:23 Currently or been in a relationship where the following occur: No concerns reported Const General: no acute distress, alert and awake Orientation/consciousness: patient oriented x3 HENMT Head: Yes normocephalic and Yes atraumatic Ears: external ears normal, TM's normal bilaterally and EAC's normal General nose exam: No nasal discharge present Face and sinus: Yes normal facial exam and Yes sinuses nontender Teeth and gingiva: dentition normal Throat: Yes posterior oropharynx normal and Yes tonsils normal (no TP congestion) Eyes Eyelids: Yes eyelids normal Conjunctivae: conjunctivae normal Pupils: Equal, round and reactive pupils present EOM: EOMs intact bilaterally Neck Neck: Yes no lymphadenopathy and Yes supple Thyroid: Thyroid normal Resp Auscultation: clear to auscultation bilaterally, no rales and no wheezes Cardio Rate: regular rate Rhythm: regular rhythm Heart sounds: no murmurs GI Palpation (GI): Soft to palpation, nontender and No hepatosplenomegaly present Auscultation: normal bowel sounds General: Yes no CVA tenderness Back/Spine/Pelvis Back: no CVA tenderness Thoracic/Lumbar Spine: thoracic and lumbar spine normal to inspection Skin Lesions: no lesions Rashes: no rashes Neuro General: patient oriented x3, moves all extremities, no focal motor deficits and CN's II-XI intact bilaterally Cranial nerves: Yes Equal, round and reactive pupils present Cognition (Neuro): normal cognition Gait exam (Neuro): Normal gait present Extrem General: Yes no clubbing, cyanosis or edema Coding Level of Care Code Est Pt Prev Care 18-39y(80604) Diagnoses Annual physical exam Z00.00 Daytime somnolence R40.0 Mixed hyperlipidemia E78.2 Gastroesophageal reflux disease without esophagitis K21.9 Esophagitis presence: without esophagitis Vitamin D deficiency E55.9 Erectile dysfunction, unspecified erectile dysfunction type N52.9 Erectile dysfunction type: unspecified Attention deficit hyperactivity disorder (ADHD), combined type F90.2 Attention deficit-hyperactivity disorder type: combined inattentive- hyperactive Anxiety F41.9 Obesity (BMI 30-39.9) E66.9 Additional Codes PHQ-9 - 80158 - PHQ-9 Billing: Yes ([id number]) Assessment & Plan Assessment & Plan (1) Annual physical exam: Code(s): Z00.00 - Encounter for general adult medical examination without abnormal findings Category: Medical Plan: Check labs BARB to complete his annual exam (2) Daytime somnolence: Code(s): R40.0 - Somnolence Category: Medical Plan: Patient was seen by sleep medicine back in June 2024 and a home sleep study was ordered but patient's health insurance was supposedly not contracted with [facility] so he had to have his sleep study done at an outside hospital So far, this has not been done yet and patient is supposedly still waiting for this to be scheduled (3) Mixed hyperlipidemia: Code(s): E78.2 - Mixed hyperlipidemia Category: Medical Plan: Reinforced low cholesterol diet Will recheck his labs and fasting lipids BARB for follow up (4) GERD (gastroesophageal reflux disease): Code(s): K21.9 - Gastro-esophageal reflux disease without esophagitis Category: Medical Qualifiers: Esophagitis presence: without esophagitis Qualified Code(s): K21.9 - Gastro-esophageal reflux disease without esophagitis Plan: Dietary restrictions reinforced Continue Famotidine 20 mg Q HS (5) Vitamin D deficiency: Code(s): E55.9 - Vitamin D deficiency, unspecified Category: Medical Plan: Continue Vitamin D3 2000 units QD (6) Erectile dysfunction: Code(s): N52.9 - Male erectile dysfunction, unspecified Category: Medical Qualifiers: Erectile dysfunction type: unspecified Qualified Code(s): N52.9 - Male erectile dysfunction, unspecified Plan: Continue Tadalafil 5 mg QD PRN Follow up with urology (Dr. Irvin) as scheduled (7) Attention deficit hyperactivity disorder (ADHD): Code(s): F90.9 - Attention-deficit hyperactivity disorder, unspecified type Category: Medical Qualifiers: Attention deficit-hyperactivity disorder type: combined inattentive- hyperactive Qualified Code(s): F90.2 - Attention-deficit hyperactivity disorder, combined type Plan: Continue Adderall XR 20 mg QD Follow up with psychiatry at [facility] as scheduled (8) Anxiety: Code(s): F41.9 - Anxiety disorder, unspecified Category: Medical Plan: Continue Fluoxetine 20 mg QD Follow-up with Psychiatry as scheduled (9) Obesity (BMI 30-39.9): Code(s): E66.9 - Obesity, unspecified Category: Medical Plan: Reinforced diet/exercise as tolerated/lose weight Plan Follow up in 6 months Orders: Orders Homocysteine 02/18/25 G47.9 - Sleep disorder, unspecified, R53.83 - Other fatigue Vitamin B12 and Folate 02/18/25 G47.9 - Sleep disorder, unspecified, R53.83 - Other fatigue IRON PROFILE 02/18/25 G47.9 - Sleep disorder, unspecified, R53.83 - Other fatigue Methylmalonic Acid 02/18/25 G47.9 - Sleep disorder, unspecified, R53.83 - Other fatigue
[2025-02-18 16:21] VITALS: BP 124/86; PULSE 94; TEMP 36.3; O2SAT 99; BMI 30.7
--- OUTSIDE RECORDS SUMMARY | 2025-02-18 16:40 | XMS_ITS | Clinical Summary ---
Author Organization [facility] Address [address] [place] [phone] Phone Care Team Providers Care Gauge Checker Name Role Phone Unavailable Primary Care Provider [...] with HEART DISEASE NOS Maternal Grandmother Alive [place] at 5 5 diagnosed with HEART DISEASE NOS Mother Alive scleroderma/ thomas pus age: 45 Paternal Grandfather [place], d before Petar was born diagnosed with [...] AM EDT Pulse - - Temperature 36.8 C (98.2 F) 01/18/2012 12:00 AM EDT Respiratory Rate - - Oxygen [...] 07/03/2016 07/03/2006, 06/08/2006, 08/09/2005, Additional history exists HPV Vaccines (1 - 3-dose SCDM series) 2022 Influenza Vaccines (#1) 2024 06/14/2012, 04/22 COVID-19 Vaccine ( - 2024- season) 2025 Hepatitis B Vaccines Completed 1995, 1995, 1995 HIB Vaccines Completed 06/18/1996, 07/20, 1995, Additional history exists MMR Vaccines Completed 12/25/2000, 02/11/1996 IPV Vaccines Completed 08/09/2005, 05/22, 12/25/2000, Additional history exists Varicella Vaccines Completed 01/01/2009, 10/17/1996 Meningococcal Vaccine Completed 06/14/2012, 007 Hepatitis A Vaccines Aged Out No long er eligible based on patient's age to complete this topic Men B Vaccine Aged Out No longer elig ible based on patient's age to complete this topic Pneumococcal Vaccine Aged Out No long er eligible based on patient's age to complete this topic
--- OUTSIDE RECORDS SUMMARY | 2025-02-18 16:40 | XMS_ITS | Encounter Summary ---
Author Organization [facility] Address [address] [place] [phone] Phone Care Team Providers Care Helicopter Crew Chief Name Role Phone Sigifredo Feliciano MD Primary Care Provider [phone] Encounter Details Date Type Department Care Team (Late st Contact Info) Description 10/07/2017 Conversion Encounter [facility] [address] [place] [address] Sigifredo Feliciano MD [address] [place] [address] Social History Tobacco Use Types Packs/Day Years [...] on filedocumented in this encounter Care Teams Helicopter Crew Chief Relationship Specialty Start Date End Date Sigifredo Feliciano MD [address] [place] [address] PCP - General 09/26/17 04/22/24 documented as of this encounter
--- OUTSIDE RECORDS SUMMARY | 2025-02-18 16:40 | XMS_ITS | Clinical Summary ---
Author Organization [facility] Address [address] [place] [address] [place] [id number] Phone Care Team Providers Care Header Set Up Operator Name Role Phone Elsy Lauren MD Primary Care Provider [phone] Allergies Active Allergy Reactions Criticality Noted Date Comments Amoxicillin 01/16/2021 Medications dextroamphetami ne-amphetamine (ADDERALL XR) 5 MG 24 hr capsule Take 15 mg by mouth every morning. Active tadalafiL (CIALIS) 5 MG tablet Take 5 mg by mouth daily as needed for erectile dysfunction. Active Active Problems No known active problems Social History Tobacco Use Types Packs/Day Years Used Date Smoking Tobacco: Never Smokeless Tobacco: Never Education Answer Date Recorded Are you interested in more education? Not on jona e 09/16/2022 Are you concerned about learning? Not on file 09/16/2022 No 09/16/2022 No 09/16/2022 Digital Access Answer Date Recorded No 10/15/2022 No 10/15/2022 No 10/15/2022 Reliable internet access at home? Not on file 10/15/2022 Device with a working camera? Not on file Sex and Gender Information Value Date Recorded Sex Assigned at Not on file Legal Sex Male 1:23 PM EDT Gender Identity Not on file Sexual Orientation Not on file Last Filed Vital Signs Vital Sign Reading Time Taken Comments Blood Pressure 132/75 03/06/2021 10:03 AM EDT Pulse 92 03/06/2021 10:25 AM EDT Temperature 36.8 C (98.2 F) 03/06/2021 10:25 AM EDT Respiratory Rate 12 03/06/2021 10:03 AM EDT Oxygen Saturation 98% 03/06/2021 10:03 AM EDT Inhaled Oxygen Concentration - - Weight 83.9 kg (185 lb) 03/06/2021 10:03 AM EDT Height 172.7 cm (5' 8 ) 03/06/2021 10:03 AM EDT Body Mass Index 28.13 03/06/2021 10:03 AM EDT Plan of Treatment Health Maintenance Due Date Last Done Comments DEPRESSION SCREENING 2007 HEPATITIS C SCREENING 2013 HIV ONE-TIME SCREENING (18-65 YEARS) 2013 INFLUENZA VACCINE (#1) 2024 9, 06/14/2012, 04/22/2010 COVID-19 VACCINE ( season) 2025 10/13/2020, 09/15/2020 Adult Td,Tdap Booster 07/15/2028 07/15/2018 , 07/03/2006, 07/03/2005 HIB VACCINES Completed 06/18/1996, 07/20, 1995, Additional history exists MENINGOCOCCAL VACCINES (ACWY) Completed 06/14/2012, 01/23/2007 SMOKING STATUS SCREENING (Once After 26 Yrs) Completed 03/06/2021 HEPATITIS A VACCINES Aged Out No long er eligible based on patient's age to complete this topic MENINGOCOCCAL VACCINES (B) Aged Out N o longer eligible based on patient's age to complete this topic PNEUMOCOCCAL VACCINES (0-49 years) Aged Out No longer eligible based on patient's age to complete this topic Medical Devices Not on file Insurance [facility] [place] [address] [place] [address] [place] [address] [place] [address] [address] [place] [address] [address] [place] [address] [place] [address] [place] [address] [place] [address] [place] [address] [place] [address] [place] [address] [facility] A[facility] Care Teams Header Set Up Operator Relationship Specialty Start Date End Date Leonidas, Elsy Larson MD [address] [place] [address] [address] [place] [phone] PCP - General Internal Medicine 03/06/21 Additional Source Comments The information contained in this document represents components of the legal health record. It is not the complete legal health record.[facility]
== END 2025-02-18 16:49 | disposition home or self-care (01) ==
LOC: HO.HMCH 16:19
PROVIDERS: PCP Internal Medicine; Visit Provider Internal Medicine
DX: Z00.00 Encounter for general adult medical examination without abnormal findings (principal); R40.0 Somnolence; E66.9 Obesity, unspecified; Z68.30 Body mass index [BMI] 30.0-30.9, adult; E78.2 Mixed hyperlipidemia; K21.9 Gastro-esophageal reflux disease without esophagitis; E55.9 Vitamin D deficiency, unspecified; N52.9 Male erectile dysfunction, unspecified; F90.2 Attention-deficit hyperactivity disorder, combined type; F41.9 Anxiety disorder, unspecified

== ENCOUNTER → 2025-02-18 16:18 | Outpatient (BNVA) | payer OTHER, SELFPAY | PROVIDERS: PCP Internal Medicine; Visit Provider Internal Medicine | DX: Z00.00 Encounter for general adult medical examination without abnormal findings (principal); R40.0 Somnolence; E78.2 Mixed hyperlipidemia; K21.9 Gastro-esophageal reflux disease without esophagitis; E55.9 Vitamin D deficiency, unspecified; N52.9 Male erectile dysfunction, unspecified; F90.2 Attention-deficit hyperactivity disorder, combined type; F41.9 Anxiety disorder, unspecified; E66.9 Obesity, unspecified; R53.83 Other fatigue; Z68.30 Body mass index [BMI] 30.0-30.9, adult | CPT/HCPCS: 96127 ==